=== PATIENT | female | born 1985 | race Caucasian/White ===

== ENCOUNTER 2021-06-03 09:12 | Emergency (ER) | payer OTHER ==
--- OUTSIDE RECORDS SUMMARY | 2021-06-03 09:23 | XMS REPORT | Continuity of Care Document ---
:1985 Author Organization [facility] t Address [address] [place] [address] [address]. [address] [place] [address] Care Team Providers Name Role Phone Ricardo Waterman MD Primary Care Physician Ana Paula ANAYA Attending Clinician Unavailable Ricardo Waterman MD Attending Clinician RICARDO WATERMAN Attending Clinician Unavailable [id number] Attending Clinician Unavailable Ana Paula Anaya MD Attending Clinician INJ Attending Clinician Unavailable [id number] Attending Clinician Unavailable Daniella GORMAN Attending Clinician Unavailable Provider, Urgent Care Attending Clinician Unavailable Ana Paula Mitchell Attending Clinician Payers Payer Name Policy Type Policy Number Effective Date Expiration Date S [facility] 2 [id number] 2020 00:00:00 Problems Condition Condition Condition Status Onset Resolution Last Treating Co mments Source Name Details Category Date Date Treatment Clinician Date Obesity Obesity Disease Active 0 Serina 7-06 Seybold 00:00: 00 Rheumatoid Rheumatoid Disease Active 0 K elsey arthritis arthritis 7-06 Seyb old 00:00: 00 No known No known Disease Unive rs active active ity of problems problems [place] [facility] Allergies, Adverse Reactions, Alerts Allergy Allergy Status Severity Reaction(s) Onset Inactive Treating Comm ents Source Name Type Date Date Clinician Penicill Propensi Active Other - See 2020-0 U nivers in ty to comments 7-14 ity of adverse 00:00: [place] reaction 00 Medical s to Branch drug PENICILL DRUG Active Low Other-Cmnt Univ ers IN INGREDI 11-10 ity of 00:00: [address] Penicill Propensi Active Other Serina ins ty to 11-02 Seybold adverse 00:00: reaction 00 s NO KNOWN Drug Active Univers ALLERGIE Class ity of S [facility] [place] [facility] Social History Social Habit Start Date Stop Date Quantity Comments Source History SDOH Serina Irizarryo ld Alcohol Frequency History SDOH Serina Segodwino ld Alcohol Std Drinks History SDOH Serina Perkinsybo ld Alcohol Binge Exposure to Not sure Serina Seybol d SARS-CoV-2 (event) History of Cigarette Smoker Universi ty of tobacco use [facility] [place] [facility] Alcohol intake 2021-05-30 2021-05-30 Current drinker of Eric donahue Seybpatricia 00:00:00 00:00:00 alcohol (finding) Alcohol Comment 2020-12-23 2020-12-23 occasionally Serina Perkinsybpatricia 00:00:00 00:00:00 Cigarettes smoked 2020-09-28 2020-09-28 Serina Sutherland current (pack per 00:00:00 00:00:00 day) - Reported Cigarette 2020-09-28 2020-09-28 Serina Perkinsybpatricia pack-years 00:00:00 00:00:00 Tobacco use and 2020-09-28 2020-09-28 Smokeless tobacco Ke godfrey Perkinsybold exposure 00:00:00 00:00:00 non-user Sex [birth year] F Serina Perkins ybpatricia 00:00:00 00:00:00 Smoking Status Start Date Stop Date Source Current every day smoker 2020-11-10 00:00:00 Uni versity [facility] Heavy tobacco smoker 2020-09-28 00:00:00 Serina Perkinsybpatricia Medications Ordered Filled Start Stop Current Ordering Indication Dosage Frequency Signature Comments Components Source Medication Medication Date Date Medication? Clinician (SIG) Name Name Cetirizine 2021- No Take by Miah y HCl (ZYRTEC 05-30 mouth Seybol d OR) 14:17: 00:00 51 :00 methylPREDN Yes [id number] 1{beatris} Take 1 beatris Serina ISolone 05-30 by mouth Seybold (Medrol) 4 00:00: See Admin MG oral 00 Instructio Tablet ns Use as Therapy directed. Pack Pseudoeph-B Yes [id number] 10mL Q.25D Take 10 mL Serina romphen-DM 1-31 by mouth 4 Sey bold (Bromfed 00:00: times DM) 30-2-10 00 daily as MG/5ML oral needed Syrup Ciprofloxac Yes [id number] 500mg Take 1 Serina in HCl 500 1-31 tablet Seybold MG oral 00:00: (500 mg Tablet 00 total) by mouth 2 times daily Lansoprazol 2020-04 Yes Take by Miah hernandez e (PREVACID 2-21 mouth Seybold OR) 15:04: 13 Cetirizine 2020-04 Yes Take by Jihan ey HCl (ZYRTEC 2-21 mouth Seybold OR) 15:04: 13 Lansoprazol 2020-04 Yes Take by Miah hernandez e (PREVACID 2-21 mouth Seybold OR) 15:04: 13 Methotrexat 2020-04 Yes [id number] 20mg Take 8 Serina e 2.5 MG 2-21 tablets Seybold oral Tablet 00:00: (20 mg 00 total) by mouth once a week Methotrexat 2020-04 Yes [id number] 20mg Take 8 Serina e 2.5 MG 2-21 tablets Seybold oral Tablet 00:00: (20 mg 00 total) by mouth once a week Azithromyci 2020-04- Yes [id number] Take 2 Serina n 250 MG 2-13 12-19 tablets by Seyb old oral Tablet 00:00: 05:59 mouth on 00 :00 day 1 then 1 tablet by mouth daily for 4 days thereafter . Methotrexat 2020-04 Yes [id number] 10mg Take 4 Serina e 2.5 MG 1-16 tablets Seybold oral Tablet 00:00: (10 mg 00 total) by mouth once a week Methotrexat 2020-04 Yes [id number] 10mg Take 4 Serina e 2.5 MG 1-16 tablets Seybold oral Tablet 00:00: (10 mg 00 total) by mouth once a week Methotrexat 2020-04- No [id number] 10mg Take 4 Serina e 2.5 MG 1-16 12-21 tablets Seybold oral Tablet 00:00: 00:00 (10 mg 00 :00 total) by mouth once a week methylPREDN 2020-04 Yes 1{beatris} Take 1 beatris Serina ISolone 0-23 by mouth Seybold (Medrol) 4 00:00: See Admin MG oral 00 Instructio Tablet ns Use as Therapy directed. Pack methylPREDN 2020-04 Yes 1{beatris} Take 1 beatris Serina ISolone 0-23 by mouth Seybold (Medrol) 4 00:00: See Admin MG oral 00 Instructio Tablet ns Use as Therapy directed. Pack methylPREDN 2020-04 Yes 1{beatris} Take 1 beatris Serina ISolone 0-23 by mouth Seybold (Medrol) 4 00:00: See Admin MG oral 00 Instructio Tablet ns Use as Therapy directed. Pack methylPREDN 2020-04- No 1{beatris} Take 1 beatris Serina ISolone 0-23 01-31 by mouth Seybold (Medrol) 4 00:00: 00:00 See Admin MG oral 00 :00 Instructio Tablet ns Use as Therapy directed. Pack Lansoprazol 2020-04 Yes Take by Miah sey e (PREVACID 0-19 mouth Seybold OR) 16:13: 29 Cetirizine 2020-04 Yes Take by Jihan ey HCl (ZYRTEC 0-19 mouth Seybold OR) 16:13: 29 Lansoprazol 2020-04 Yes Take by Miah sey e (PREVACID 0-19 mouth Seybold OR) 16:13: 29 Cetirizine 2020-04 Yes Take by Jihan ey HCl (ZYRTEC 0-19 mouth Seybold OR) 16:13: 29 Medroxyprog 2020-04- No [id number] 150mg Serina esterone 0-05 09-30 Seybold (DEPO-PROVE 05:00: 04:59 RA) [150 00 :00 mg/mL] - Once Every 3 Months Medroxyprog 2020-04- No [id number] 150mg Serina esterone 0-05 09-30 Seybold (DEPO-PROVE 05:00: 04:59 RA) [150 00 :00 mg/mL] - Once Every 3 Months Medroxyprog 2020-04- No [id number] 150mg Serina esterone 0-05 09-30 Seybold (DEPO-PROVE 05:00: 04:59 RA) [150 00 :00 mg/mL] - Once Every 3 Months Medroxyprog 2020-04- No [id number] 150mg Serina esterone 0-05 09-30 Seybold (DEPO-PROVE 05:00: 04:59 RA) [150 00 :00 mg/mL] - Once Every 3 Months Medroxyprog 2020-04- No [id number] 150mg Serina esterone 0-05 09-30 Seybold (DEPO-PROVE 05:00: 04:59 RA) [150 00 :00 mg/mL] - Once Every 3 Months Medroxyprog 2020-04- No [id number] 150mg Serina esterone 0-05 09-30 Seybold (DEPO-PROVE 05:00: 04:59 RA) [150 00 :00 mg/mL] - Once Every 3 Months Lansoprazol Yes Take by Miah sey e (PREVACID 8-26 mouth Seybold OR) 15:39: 54 Cetirizine Yes Take by Jihan ey HCl (ZYRTEC 8-26 mouth Seybold OR) 15:39: 54 Lansoprazol Yes Take by Miah sey e (PREVACID 8-26 mouth Seybold OR) 15:39: 54 Cetirizine Yes Take by Jihan ey HCl (ZYRTEC 8-26 mouth Seybold OR) 15:39: 54 Medroxyprog 2021- No [id number] 150mg Serina esterone 7-20 07-15 Seybold Acetate 05:00: 04:59 (DEPO-PROVE 00 :00 RA) 150 mg/mL - Once Every 3 Months Medroxyprog 2021- No [id number] 150mg Serina esterone 7-20 07-15 Seybold Acetate 05:00: 04:59 (DEPO-PROVE 00 :00 RA) 150 mg/mL - Once Every 3 Months Medroxyprog 2021- No [id number] 150mg Serina esterone 7-20 07-15 Seybold Acetate 05:00: 04:59 (DEPO-PROVE 00 :00 RA) 150 mg/mL - Once Every 3 Months Medroxyprog 2021- No [id number] 150mg Serina esterone 7-20 07-15 Seybold Acetate 05:00: 04:59 (DEPO-PROVE 00 :00 RA) 150 mg/mL - Once Every 3 Months Medroxyprog 2021- No [id number] 150mg Serina esterone 7-20 07-15 Seybold Acetate 05:00: 04:59 (DEPO-PROVE 00 :00 RA) 150 mg/mL - Once Every 3 Months Medroxyprog 2021- No [id number] 150mg Serina esterone 7-20 07-15 Seybold Acetate 05:00: 04:59 (DEPO-PROVE 00 :00 RA) 150 mg/mL - Once Every 3 Months Lisinopril Yes [id number] 5mg Take 1 K elsey 5 MG oral 7-20 tablet (5 Seybo ld Tablet 00:00: mg total) 00 by mouth daily Amitriptyli Yes [id number] 150mg Take 1 Serina ne HCl 150 7-20 tablet Seybold MG oral 00:00: (150 mg Tablet 00 total) by mouth nightly Levothyroxi Yes [id number] 75ug Take 1 Serina ne Sodium 7-20 tablet (75 Seyb old 75 MCG oral 00:00: mcg total) Tablet 00 by mouth daily Lisinopril Yes [id number] 5mg Take 1 K elsey 5 MG oral 7-20 tablet (5 Seybo ld Tablet 00:00: mg total) 00 by mouth daily Amitriptyli Yes [id number] 150mg Take 1 Serina ne HCl 150 7-20 tablet Seybold MG oral 00:00: (150 mg Tablet 00 total) by mouth nightly Levothyroxi Yes [id number] 75ug Take 1 Serina ne Sodium 7-20 tablet (75 Seyb old 75 MCG oral 00:00: mcg total) Tablet 00 by mouth daily Lisinopril 2021-0 Yes [id number] 5mg Take 1 K elsey 5 MG oral 7-20 tablet (5 Seybo ld Tablet 00:00: mg total) 00 by mouth daily Amitriptyli Yes [id number] 150mg Take 1 Serina ne HCl 150 7-20 tablet Seybold MG oral 00:00: (150 mg Tablet 00 total) by mouth nightly Levothyroxi Yes [id number] 75ug Take 1 Serina ne Sodium 7-20 tablet (75 Seyb old 75 MCG oral 00:00: mcg total) Tablet 00 by mouth daily Lisinopril Yes [id number] 5mg Take 1 K elsey 5 MG oral 7-20 tablet (5 Seybo ld Tablet 00:00: mg total) 00 by mouth daily Amitriptyli Yes [id number] 150mg Take 1 Serina ne HCl 150 7-20 tablet Seybold MG oral 00:00: (150 mg Tablet 00 total) by mouth nightly Levothyroxi Yes [id number] 75ug Take 1 Serina ne Sodium 7-20 tablet (75 Seyb old 75 MCG oral 00:00: mcg total) Tablet 00 by mouth daily Lisinopril Yes [id number] 5mg Take 1 K elsey 5 MG oral 7-20 tablet (5 Seybo ld Tablet 00:00: mg total) 00 by mouth daily Amitriptyli Yes [id number] 150mg Take 1 Serina ne HCl 150 7-20 tablet Seybold MG oral 00:00: (150 mg Tablet 00 total) by mouth nightly Levothyroxi Yes [id number] 75ug Take 1 Serina ne Sodium 7-20 tablet (75 Seyb old 75 MCG oral 00:00: mcg total) Tablet 00 by mouth daily Lisinopril Yes [id number] 5mg Take 1 K elsey 5 MG oral 7-20 tablet (5 Seybo ld Tablet 00:00: mg total) 00 by mouth daily Amitriptyli Yes [id number] 150mg Take 1 Serina ne HCl 150 7-20 tablet Seybold MG oral 00:00: (150 mg Tablet 00 total) by mouth nightly Levothyroxi Yes [id number] 75ug Take 1 Serina ne Sodium 7-20 tablet (75 Seyb old 75 MCG oral 00:00: mcg total) Tablet 00 by mouth daily Eletriptan Yes [id number] 40mg Take 1 Serina Hydrobromid 6-03 tablet (40 Se ybold e (Relpax) 00:00: mg total) 40 MG oral 00 by mouth Tablet as needed for migraine may repeat in 2 hours if necessary Eletriptan Yes [id number] 40mg Take 1 Serina Hydrobromid 6-03 tablet (40 Se ybold e (Relpax) 00:00: mg total) 40 MG oral 00 by mouth Tablet as needed for migraine may repeat in 2 hours if necessary Eletriptan Yes [id number] 40mg Take 1 Serina Hydrobromid 6-03 tablet (40 Se ybold e (Relpax) 00:00: mg total) 40 MG oral 00 by mouth Tablet as needed for migraine may repeat in 2 hours if necessary Eletriptan Yes [id number] 40mg Take 1 Serina Hydrobromid 6-03 tablet (40 Se ybold e (Relpax) 00:00: mg total) 40 MG oral 00 by mouth Tablet as needed for migraine may repeat in 2 hours if necessary Eletriptan Yes [id number] 40mg Take 1 Serina Hydrobromid 6-03 tablet (40 Se ybold e (Relpax) 00:00: mg total) 40 MG oral 00 by mouth Tablet as needed for migraine may repeat in 2 hours if necessary Eletriptan Yes [id number] 40mg Take 1 Serina Hydrobromid 6-03 tablet (40 Se ybold e (Relpax) 00:00: mg total) 40 MG oral 00 by mouth Tablet as needed for migraine may repeat in 2 hours if necessary Dextrometho Yes [id number] 1-2 Ke bobbyey rphan-guaiF 6-01 tablets Seybo ld ENesin 00:00: twice (Mucinex 00 daily with DM) 30-600 a full MG oral glass of Tablet 12 water as Hour needed for Sustained cough and Release congestion Ondansetron Yes [id number] 8mg Q8H Take 1 Serina (ZOFRAN) 8 6-01 tablet (8 Seyb old MG oral 00:00: mg total) tablet 00 by mouth every 8 hours as needed for nausea Loperamide 2020-0 Yes [id number] Take as Serina HCl 6-01 per Seybold (Imodium 00:00: package A-D) 2 MG 00 instructio oral Tablet n For diarrhea Ondansetron 2020-0 Yes [id number] 8mg Q8H Take 1 Serina (ZOFRAN) 8 6-01 tablet (8 Seyb old MG oral 00:00: mg total) tablet 00 by mouth every 8 hours as needed for nausea Loperamide 2020-0 Yes [id number] Take as Serina HCl 6-01 per Seybold (Imodium 00:00: package A-D) 2 MG 00 instructio oral Tablet n For diarrhea Azithromyci 2020-0 Yes [id number] 2 tablets Serina n 250 MG 6-01 at once on Seybo ld oral Tablet 00:00: day 1, 00 then 1 tablet daily from day 2 to day 5 Dextrometho 2020-0 Yes [id number] 1-2 Ke lsey rphan-guaiF 6-01 tablets Seybo ld ENesin 00:00: twice (Mucinex 00 daily with DM) 30-600 a full MG oral glass of Tablet 12 water as Hour needed for Sustained cough and Release congestion Ondansetron 2020-0 Yes [id number] 8mg Q8H Take 1 Serina (ZOFRAN) 8 6-01 tablet (8 Seyb old MG oral 00:00: mg total) tablet 00 by mouth every 8 hours as needed for nausea Loperamide 2020-0 Yes [id number] Take as Serina HCl 6-01 per Seybold (Imodium 00:00: package A-D) 2 MG 00 instructio oral Tablet n For diarrhea Azithromyci 2020-0 Yes [id number] 2 tablets Serina n 250 MG 6-01 at once on Seybo ld oral Tablet 00:00: day 1, 00 then 1 tablet daily from day 2 to day 5 Dextrometho 2021-0 Yes [id number] 1-2 Ke lsey rphan-guaiF 6-01 tablets Seybo ld ENesin 00:00: twice (Mucinex 00 daily with DM) 30-600 a full MG oral glass of Tablet 12 water as Hour needed for Sustained cough and Release congestion Ondansetron 2020-0 Yes [id number] 8mg Q8H Take 1 Serina (ZOFRAN) 8 6-01 tablet (8 Seyb old MG oral 00:00: mg total) tablet 00 by mouth every 8 hours as needed for nausea Loperamide 2020-0 Yes [id number] Take as Serina HCl 6-01 per Seybold (Imodium 00:00: package A-D) 2 MG 00 instructio oral Tablet n For diarrhea Azithromyci 2020-0 Yes [id number] 2 tablets Serina n 250 MG 6-01 at once on Seybo ld oral Tablet 00:00: day 1, 00 then 1 tablet daily from day 2 to day 5 Dextrometho 2020-0 Yes [id number] 1-2 Ke lsey rphan-guaiF 6-01 tablets Seybo ld ENesin 00:00: twice (Mucinex 00 daily with DM) 30-600 a full MG oral glass of Tablet 12 water as Hour needed for Sustained cough and Release congestion Ondansetron 2020-0 Yes [id number] 8mg Q8H Take 1 Serina (ZOFRAN) 8 6-01 tablet (8 Seyb old MG oral 00:00: mg total) tablet 00 by mouth every 8 hours as needed for nausea Loperamide 2020-0 Yes [id number] Take as Serina HCl 6-01 per Seybold (Imodium 00:00: package A-D) 2 MG 00 instructio oral Tablet n For diarrhea Dextrometho 2020-0 Yes [id number] 1-2 Ke lsey rphan-guaiF 6-01 tablets Seybo ld ENesin 00:00: twice (Mucinex 00 daily with DM) 30-600 a full MG oral glass of Tablet 12 water as Hour needed for Sustained cough and Release congestion Ondansetron 2020-0 Yes [id number] 8mg Q8H Take 1 Serina (ZOFRAN) 8 6-01 tablet (8 Seyb old MG oral 00:00: mg total) tablet 00 by mouth every 8 hours as needed for nausea Loperamide 2020-0 Yes [id number] Take as Serina HCl 6-01 per Seybold (Imodium 00:00: package A-D) 2 MG 00 instructio oral Tablet n For diarrhea Dextrometho 2021- No [id number] 1-2 K chase bush-sonidoF 09-28 tablets Seyb old ENesin 00:00: 00:00 twice (Mucinex 00 :00 daily with DM) 30-600 a full MG oral glass of Tablet 12 water as Hour needed for Sustained cough and Release congestion Azithromyci 2020- No [id number] 2 tablets Serina n 250 MG 09-28 at once on Seyb old oral Tablet 00:00: 00:00 day 1, 00 :00 then 1 tablet daily from day 2 to day 5 ibuprofen 2020- No 600mg Take 1 Univ ers (MOTRIN) 01-11 tablet by ity o f 600 mg 00:00: 00:00 mouth [place] tablet 00 :00 every 6 Medical (six) Branch hours as needed for Pain (scale 4-6). cetirizine Yes 10mg Take 10 mg U nivers (ZYRTEC) 10 9-12 by mouth ity of mg tablet 19:18: daily. [place] [address] Medical Branch AMITRIPTYLI Yes Take by Un kimi NE HCL 9-12 mouth. ity of (AMITRIPTYL 19:18: [place] INE ORAL) Medical Branch LEVOTHYROXI Yes Take by Un kimi NE SODIUM 9-12 mouth. ity of (SYNTHROID 19:18: [place] ORAL) 26 Medical Branch LOSARTAN Yes Take by Unive rs POTASSIUM 9-12 mouth. ity of (LOSARTAN 19:18: [place] ORAL) 26 Medical Branch propranolol Yes 60mg Take 60 mg Univers (INDERAL) 9-12 by mouth ity of 60 mg 19:18: daily. [place] tablet 26 Medical Branch eletriptan Yes 40mg Take 40 mg U nivers (RELPAX) 40 9-12 by mouth ity of mg tablet 19:18: [place]. [place] 26 May repeat Medical in 2 hours Branch if necessary amitriptyli Yes 100mg Take 100 U nivers ne (ELAVIL) 9-12 mg by ity of 100 mg 19:18: mouth at [place] tablet 25 bedtime. Medical Branch acetaminoph Yes 1{tbl} Take 1 Un kimi en-codeine 9-12 tablet by ity of (TYLENOL 19:18: mouth as [place] #3) 300-30 25 needed. Medica l mg tablet Branch Dexlansopra Yes 60mg Take 60 mg Univers zole 9-12 by mouth ity of (DEXILANT) 19:18: daily. [place] 60 mg 25 Medical capsule Branch levothyroxi Yes 50ug Take 50 Uni vers ne 9-12 mcg by ity of (SYNTHROID) 19:18: mouth [place] 50 mcg 25 every Medical tablet morning. Branch losartan Yes 50mg Take 50 mg Uni vers (COZAAR) 50 9-12 by mouth ity of mg tablet 19:18: daily. [place] 25 Medical Branch albuterol Yes 2{puff} Inhale 2 U nivers (PROAIR 9-12 Puffs ity of HFA) 90 19:18: every 6 [place] mcg/actuati 25 (six) Medical on inhaler hours as Branc h needed for Wheezing or Shortness of Breath. sulfamethox Yes 1{tbl} Take 1 Un kimi azole-trime 9-05 tablet by ity of thoprim 00:00: mouth [place] (BACTRIM 00 every 12 Medical DS) 800-160 (twelve) Bran ch mg per hours. tablet dicyclomine Yes 20mg Take 1 Univ ers (BENTYL) 20 9-05 tablet by ity of mg tablet 00:00: [place] 00 needed for Medical Abdominal Branch pain (TO MAX OF QID). famotidine Yes 20mg Take 1 Unive rs (PEPCID) 20 9-05 tablet by ity of mg tablet 00:00: [place] 00 bedtime. [place] proMETHazin Yes 25mg Take 1 Univ ers e 9-05 tablet by ity of (PHENERGAN) 00:00: mouth [place] 25 mg 00 every 6 Medical tablet (six) Branch hours as needed for Nausea and Vomiting (N/V) (TO MAX OF QID). Immunizations Ordered Immunization Filled Immunization Date Status Commen ts Source Name Name Meningococcal 2011-03-20 Completed Serina gomez Vaccine- 00:00:00 Conjugate(Menactra) Meningococcal 2011-03-20 Completed Serina Irizarry old Vaccine- 00:00:00 Conjugate(Menactra) Meningococcal 2011-03-20 Completed Serina Perkinsyb old Vaccine- 00:00:00 Conjugate(Menactra) Meningococcal 2011-03-20 Completed Serina yb old Vaccine- 00:00:00 Conjugate(Menactra) Meningococcal 2011-03-20 Completed Serina godwin old Vaccine- 00:00:00 Conjugate(Menactra) Meningococcal 2011-03-20 Completed Serina Irizarry old Vaccine- 00:00:00 Conjugate(Menactra) Td (adult), 2 2002-02-18 Completed Serina Monreal eybold tetanus toxoid, 00:00:00 preservative free, adsorbed Td (adult), 2 2002-02-18 Completed Serina barajasbold tetanus toxoid, 00:00:00 preservative free, adsorbed Td (adult), 2 2002-02-18 Completed Serina barajasbold tetanus toxoid, 00:00:00 preservative free, adsorbed Td (adult), 2 2002-02-18 Completed Serina Monreal eybold tetanus toxoid, 00:00:00 preservative free, adsorbed Td (adult), 2 2002-02-18 Completed Serina barajasbold tetanus toxoid, 00:00:00 preservative free, adsorbed Td (adult), 2 2002-02-18 Completed Serina S karlbold tetanus toxoid, 00:00:00 preservative free, adsorbed Vital Signs Vital Name Observation Time Observation Value Comments Source Systolic blood 2021-04-19 21:01:00 156 mm[Hg] Serina Irizarryold pressure Diastolic blood 2021-04-19 21:01:00 96 mm[Hg] Sugar díaz Seybold pressure Heart rate 2021-04-19 21:01:00 109 /min Serina curtis Respiratory rate 2021-04-19 21:01:00 16 /min Jihan Sutherland Body height 2021-04-19 21:01:00 167.6 cm Serina curtis Body weight 2021-04-19 21:01:00 115.667 kg Serina curtis BMI 2021-04-19 21:01:00 41.16 kg/m2 Serina S eybold Systolic blood 2021-02-15 20:36:00 134 mm[Hg] Serina Seybold pressure Diastolic blood 2021-02-15 20:36:00 88 mm[Hg] Kelse y Seybold pressure Heart rate 2021-02-15 20:36:00 88 /min Serina S eybold Body temperature 2021-02-15 20:36:00 36.39 Sonja Jihan ey Seybold Respiratory rate 2021-02-15 20:36:00 16 /min Jihan ey Seybold Body height 2021-02-15 20:36:00 167.6 cm Serina S eybold Body weight 2021-02-15 20:36:00 117.935 kg Serina S eybold BMI 2021-02-15 20:36:00 41.97 kg/m2 Serina S eybold Systolic blood 2020-11-10 13:55:00 124 mm[Hg] Univer sity of pressure [facility] [place] [facility] Diastolic blood 2020-11-10 13:55:00 85 mm[Hg] Unive rsity of pressure [facility] [place] [facility] Heart rate 2020-11-10 13:55:00 92 /min Universi ty of [facility] [place] [facility] Body temperature 2020-11-10 13:55:00 36.94 Sonja Univ ersity of [facility] [place] [facility] Branch Respiratory rate 2020-11-10 13:55:00 18 /min Univ ersity of [facility] [place] [facility] Body height 2020-11-10 13:55:00 167.6 cm Universi ty of [place] [facility] Body weight 2020-11-10 13:55:00 113.399 kg Universi ty of [place] [facility] BMI 2020-11-10 13:55:00 40.35 kg/m2 Universi ty of [facility] [place] [facility] Oxygen saturation in 2020-11-10 13:55:00 100 /min [facility] blood by [facility] Pulse oximetry Branch Procedures This patient has no known procedures. Encounters Start End Encounter Admission Attending Care Care Encounter Source Date/Time Date/Time Type Type Clinicians Facility Department ID 2021-06-21 2021-06-21 Outpatient SERINA ANAYA [id number] Serina 14:30:00 14:30:00 LISS Hickey ld 2021-05-302021-05-30 Telemedici Sumit Waterman [id number] Serina 14:00:00 14:18:57 ne Kim Uribe [id number] Se ybold Somogyi [id number] 2021-05-24 2021-05-24 Outpatient SERINA WATERMAN [id number] Serina 11:15:00 11:15:00 KIM Seybol d 2021-04-19 2021-04-19 Outpatient LAB SERINA FERNANDES [id number] Serina 15:30:00 15:30:00 Seybol d 2021-04-19 2021-04-19 Office DARYL Anaya [id number] Serina 15:00:00 15:15:00 Visit Liss Goss [id number] Seybold [id number] 2021-04-11 2021-04-11 Telemedici Sumit WATERMAN [id number] Serina 13:30:00 13:30:00 ne KIM Uribe [id number] Se ybold [id number] 2021-03-15 2021-03-15 Telemedici DARYL Anaya [id number] Serina 15:02:33 15:11:41 ne Liss Ana Paula [id number] Seybold [id number] 2021-02-19 2021-02-19 Outpatient SERINA ANAYA [id number] Serina 00:00:00 00:00:00 LISS Irizarryo pat 2021-02-18 2021-02-18 Outpatient SERINA ANAYA [id number] Serina 00:00:00 00:00:00 LISS Irizarryo pat 2021-02-15 2021-02-15 Office DARYL Anaya [id number] Serina 15:28:17 15:58:17 Visit Liss Goss [id number] Seybold [id number] 2021-02-15 2021-02-15 Outpatient LAB47 SERINA FERNANDES [id number] Serina 15:50:00 15:50:00 Seybol d 2021-02-09 2021-02-09 Telemedici Sumit Waterman [id number] Serina 14:29:06 14:47:11 ne Kim Uribe [id number] Se ybold Somogyi [id number] 2021-02-08 2021-02-08 Outpatient INJSERINA [id number] Serina 15:00:00 15:00:00 DARYL Irizarryo pat 2021-01-11 2021-01-11 Outpatient SERINA ANAYA [id number] Serina 15:15:00 15:15:00 LISS Perkinsybo pat 2020-12-23 2020-12-23 Outpatient [id number] SERINA FERNANDES [id number] Serina 17:00:00 17:00:00 Seybol d 2020-12-23 2020-12-23 Outpatient GORMANSERINA HEAD [id number] Serina 15:30:00 15:30:00 GIANLUCA Seybol d 2020-11-16 2020-11-16 Outpatient INJSERINA [id number] Serina 16:30:00 16:30:00 DARYL Irizarryo pat 2020-11-10 2020-11-10 Outpatient R [facility] [id number] Univers 10:00:00 10:00:00 ity of [facility] [place] [facility] 2020-11-10 2020-11-10 Urgent Provider, [facility] [id number] Univers 08:14:07 09:20:05 Care Triny Lovett [id number] ity [facility] [id number] [place] as Professio [id number] [address] Office [address] 2020-11-10 2020-11-10 Outpatient SERINA WATERMAN [id number] Serina 00:00:00 00:00:00 KIM baumann 2020-11-04 2020-11-04 Outpatient SERINA WATERMAN [id number] Serina 00:00:00 00:00:00 KIM baumann Results This patient has no known results.
[2021-06-03 09:43] LABS: Urine Blood Negative (Negative); Urine Glucose Negative (Negative); Urine Protein Negative (Negative); Urine Specific Gravity 1.015 (1.005-1.030)
[2021-06-03] MEDS ORDERED: FAMOTIDINE 20 MG/2 ML VIAL IV ONE (09:44)
[2021-06-03] MEDS ORDERED: NA CHLORIDE 0.9% 1,000 ML ONE (09:44)
[2021-06-03] MEDS ORDERED: ONDANSETRON 4 MG/2 ML VIAL ONE (09:44)
[2021-06-03 09:52] LABS: Absolute Lymphocytes (CBC) 1.5 K/uL (0.7-4.9); Lymphocytes % 13.4 % (15.3-44.8); RBC Red Blood Cell Count 4.74 M/uL (3.86-4.86)
[2021-06-03 10:18] LABS: Urine Specific Gravity/Preg 1.015 (1.005-1.030)
--- NOTE | 2021-06-03 11:21 | RAD REPORT ---
EXAM DESCRIPTION: US - Abdomen Exam Limited - 06/03/2021 10:47 am CLINICAL HISTORY: ABD PAIN COMPARISON: Abdomen Exam Complete dated 03/23/2020 FINDINGS: The gallbladder demonstrates no gallstones. No pericholecystic fluid or gallbladder wall t hickening. The common bile duct is normal measuring 5 mm. The liver demonstrates no findings of intrahepatic biliary dilatation. IMPRESSION: Negative for cholelithiasis, acute cholecystitis, or biliary ductal dilatation.
[2021-06-03] MEDS ORDERED: LORazepam 2 MG/ML VIAL ONE ×2 (11:24→13:22)
[2021-06-03 11:35] LABS: ALT/SGPT 91 U/L (12-78); AST/SGOT 28 U/L (15-37); Albumin 3.4 g/dL (3.4-5.0); Alkaline Phosphatase 76 U/L (45-117); BUN Blood Urea Nitrogen 19 mg/dL (7-18); Bicarbonate 19 mmol/L (21-32); Bilirubin Direct < 0.1 mg/dL (0-0.2); Bilirubin Total 0.3 mg/dL (0.2-1.0); Glucose Level 108 mg/dL (74-106); Lipase 134 U/L (73-393); Potassium 4.2 mmol/L (3.5-5.1); Protein, Total 6.7 g/dL (6.4-8.2); Sodium Level 140 mmol/L (136-145)
[2021-06-03] MEDS ORDERED: MORPHINE 4 MG/ML SYR ONE (13:23)
--- NOTE | 2021-06-03 14:23 | RAD REPORT ---
EXAM DESCRIPTION: CT - Abdomen Pelvis Wo Contrast - 06/03/2021 2:08 pm CLINICAL HISTORY: Abdominal pain. ABD PAIN COMPARISON: Stone Protocol dated 08/12/2015 TECHNIQUE: CT imaging of the abdomen and pelvis was performed without contrast. Solid organ, bowel a nd vascular assessment is limited due to lack of IV and oral contrast. All CT scans are performed using dose optimization technique as appropriate and may include automated exposure control or mA/KV adjustment according to patient size. FINDINGS: The lower lung urena are clear. The liver, spleen, pancreas, adrenal glands and left kidney are within normal limits for a limited no n-contrast examination. No bowel obstruction, free air, free fluid or abscess. Appendectomy. The osseous structures are within normal limits. IMPRESSION: Small calculus inferior right kidney without hydronephrosis. A limited non-contrast examination was performed as detailed.
--- NOTE | 2021-06-03 15:44 | RAD REPORT ---
EXAM DESCRIPTION: RAD - Chest Single View - 06/03/2021 3:33 pm CLINICAL HISTORY: Cough;Congestion Chest pain. COMPARISON: Chest Pa And Lat (2 Views) dated 06/25/2019; Chest Pa And Lat (2 Views) dated 05/18/2016; CHEST SINGLE VIEW dated 07/03/2014; CHEST PA AND LAT 2 VIEW dated 06/09/2014 FINDINGS: Portable technique limits examination quality. The lungs are grossly clear. The heart is normal in size. No displaced fractures. IMPRESSION: No acute intrathoracic process suspected.
--- NOTE | 2021-06-03 15:57 | ER ---
Nurse's Notes [facility] Name: Adina Watkins Age: 35 yrs Sex: Female : 1985 Arrival Date: 06/03/2021 Time: 09:14 Bed 13 Private MD: Diagnosis: Upper abdominal pain, unspecified;Cough Presentation: 06/03 09:23 Chief complaint: Patient states: Right sided abdominal pain, throbbing, radiates to jl7 right shoulder/arm since last night, reports nausea and frequent urination. Coronavirus screen: Vaccine status: Patient reports receiving the 2nd dose of the covid vaccine. Moderna. Ebola Screen: No symptoms or risks identified at this time. Initial Sepsis Screen: Does the patient meet any 2 criteria? No. Patient's initial sepsis screen is negative. Does the patient have a suspected source of infection? No. Patient's initial sepsis screen is negative. Risk Assessment: Do you want to hurt yourself or someone else? Patient reports no desire to harm self or others. Onset of symptoms was June 02, 2021. 09:23 Method Of Arrival: Ambulatory [facility] 09:23 Acuity: CARTER 3 jl7 Triage Assessment: 09:26 General: Appears in no apparent distress. uncomfortable, Behavior is calm, cooperative, jl7 appropriate for age. Pain: Complains of pain in anterior aspect of right lateral abdomen Pain currently is 8 out of 10 on a pain scale. GI: Reports nausea. APPLICATIONS INTERN: 09:26 LMP N/A - Depo-provera jl7 Historical: - Allergies: 09:26 PENICILLINS; jl7 - Home Meds: :26 levothyroxine oral [Active]; losartan oral [Active]; Prevacid Oral [Active]; jl7 Methotrexate (Anti-Rheumatic) Oral [Active]; Amitriptyline Oral [Active]; - PMHx: 09:26 Hypothyroidism; Migraines; Hypertensive disorder; Rheumatoid arthritis; GERD; jl7 - PSHx: 09:26 Appendectomy; Tonsillectomy; jl7 - Immunization history:: Adult Immunizations up to date, Client reports receiving the 2nd dose of the Covid vaccine. - Social history:: Smoking status: Patient reports the use of cigarette tobacco products, smokes one-half pack cigarettes per day. Screenin:30 Abuse screen: Denies threats or abuse. Denies injuries from another. Nutritional hooks screening: No deficits noted. Tuberculosis screening: No symptoms or risk factors identified. Fall Risk None identified. Assessment: 09:30 GI: Bowel sounds present X 4 quads. Abd is soft Abd is non tender Reports lower hooks abdominal pain. : Reports burning with urination. 10:13 Reassessment: Pt provided w tissue as requested. Mom at pt's bedside. ic1 10:42 Reassessment: Pt transported to [facility] via wheelchair. ic1 Vital Signs: 09:23 BP 137 / 100; Pulse 103; Resp 17; Temp 97; Pulse Ox 97% ; Weight 115.67 kg; Height 5 jl7 ft. 6 in. (167.64 cm); Pain 8/10; 09:23 Body Mass Index 41.16 (115.67 kg, 167.64 cm) jl7 ED Course: 09:14 Patient arrived in ED. as 09:26 Triage completed. jl7 09:26 Arm band placed on right wrist. jl7 09:30 Fall risk band placed. Bed in low position. hooks 09:30 No provider procedures requiring assistance completed. hooks 09:34 Jesse Woods MD is Attending Physician. kdr 09:43 Basic Metabolic Panel Sent. hooks 09:43 CBC with Diff Sent. hooks 09:43 Hepatic Function Sent. hooks 09:43 Lipase Sent. hooks 09:55 Inserted saline lock: 20 gauge in right hand, using aseptic technique. hooks 10:47 US Abdomen Limited In Process Unspecified. EDMS 14:08 Abdomen In Process Unspecified. EDMS 15:38 CXR XRAY In Process Unspecified. EDMS 16:23 IV discontinued, intact, Pressure dressing applied. hooks Administered Medications: 09:46 Drug: NS 0.9% 1000 ml Route: IV; Rate: 1 bolus; Site: right hand; ic1 09:47 Drug: Pepcid (famotidine) 20 mg Route: IVP; Site: right hand; ic1 09:47 Drug: Zofran (Ondansetron) 4 mg Route: IVP; Site: right hand; ic1 11:40 Drug: Ativan (LORazepam) 1 mg Route: IVP; Site: right hand; ic1 12:43 Follow up: Response: No adverse reaction hooks 13:23 Drug: Ativan (LORazepam) 1 mg Route: IVP; Site: right hand; 13:23 Follow up: Response: No adverse reaction hooks 13:23 Drug: morphine 5 mg Route: IVP; Site: right hand; 13:23 Follow up: Response: No adverse reaction hooks Outcome: 15:56 Discharge ordered by . rojelio 16:23 Discharged to home hooks 16:23 Condition: good 16:23 Discharge instructions given to patient, Prescriptions given X 1. 16:23 Patient left the ED. hooks Signatures: Dispatcher [employer] EDMS Jesse Woods MD MD kdr Martinez, Amelia as Leal, Jahala, RN RN jl7 Keyanna Berumen RN RN Halie Johnson RN RN ic1
--- NOTE | 2021-06-03 15:57 | EDPHYS ---
Physician Documentation [facility] Name: Adina Watkins Age: 35 yrs Sex: Female : 1985 Arrival Date: 06/03/2021 Time: 09:14 Bed 13 Private MD: ED Physician Jesse Woods HPI: 06/03 11:08 This 35 yrs old Female presents to ER via Ambulatory with complaints of Abdominal Pain. kdr 11:08 The patient presents to the emergency department with nausea, that is mild, vomiting, kdr that is intermittent, abdominal pain, of the posterior aspect of right lateral abdomen, anterior aspect of right lateral abdomen and right upper quadrant. Onset: The symptoms/episode began/occurred last night. Possible causes: unknown. The symptoms are aggravated by. Associated signs and symptoms: The patient has no apparent associated signs or symptoms. Severity of symptoms: At their worst the symptoms were mild moderate just prior to arrival, in the emergency department the symptoms are unchanged. The patient has experienced similar episodes in the past, a few times. The patient has not recently seen a physician. The patient began to have right-sided abdominal pain. The pain is right upper quadrant with radiation to into the right flank. Pain is intermittent and occasionally sharp in nature. She has had some slight nausea but no vomiting. No change in bowel habits.. REPRESENTATIVE GOVERNMENT RELATIONS: 09:26 LMP N/A - Depo-provera Historical: - Allergies: : PENICILLINS; jl - Home Meds: :26 levothyroxine oral [Active]; losartan oral [Active]; Prevacid Oral [Active]; jl7 Methotrexate (Anti-Rheumatic) Oral [Active]; Amitriptyline Oral [Active]; - PMHx: 09:26 Hypothyroidism; Migraines; Hypertensive disorder; Rheumatoid arthritis; GERD; jl7 - PSHx: :26 Appendectomy; Tonsillectomy; jl7 - Immunization history:: Adult Immunizations up to date, Client reports receiving the 2nd dose of the Covid vaccine. - Social history:: Smoking status: Patient reports the use of cigarette tobacco products, smokes one-half pack cigarettes per day. ROS: 11:08 Constitutional: Negative for fever, chills, and weight loss, Eyes: Negative for injury, kdr pain, redness, and discharge, ENT: Negative for injury, pain, and discharge, Neck: Negative for injury, pain, and swelling, Cardiovascular: Negative for chest pain, palpitations, and edema, Respiratory: Negative for shortness of breath, cough, wheezing, and pleuritic chest pain, Back: Negative for injury and pain, : Negative for injury, bleeding, discharge, and swelling, MS/Extremity: Negative for injury and deformity, Skin: Negative for injury, rash, and discoloration, Neuro: Negative for headache, weakness, numbness, tingling, and seizure activity. Psych: Negative for depression, anxiety, suicide ideation, homicidal ideation, and hallucinations, Allergy/Immunology: Negative for hives, rash, and allergies, Endocrine: Negative for neck swelling, polydipsia, polyuria, polyphagia, and marked weight changes, Hematologic/Lymphatic: Negative for swollen nodes, abnormal bleeding, and unusual bruising. 11:08 Abdomen/GI: Positive for abdominal pain, nausea, Negative for constipation, abdominal cramps, abdominal distension, anorexia, dysphagia, hematemesis, black/tarry stool, rectal pain, rectal bleeding. Exam: 11:08 Constitutional: This is a well developed, well nourished patient who is awake, alert, kdr and in no acute distress. Head/Face: Normocephalic, atraumatic. Eyes: Pupils equal round and reactive to light, extra-ocular motions intact. Lids and lashes normal. Conjunctiva and sclera are non-icteric and not injected. Cornea within normal limits. Periorbital areas with no swelling, redness, or edema. Neck: Trachea midline, no thyromegaly or masses palpated, and no cervical lymphadenopathy. Supple, full range of motion without nuchal rigidity, or vertebral point tenderness. No Meningismus. Chest/axilla: Normal chest wall appearance and motion. Nontender with no deformity. No lesions are appreciated. Cardiovascular: Regular rate and rhythm with a normal S1 and S2. No gallops, murmurs, or rubs. Normal PMI, no JVD. No pulse deficits. Respiratory: Lungs have equal breath sounds bilaterally, clear to auscultation and percussion. No rales, rhonchi or wheezes noted. No increased work of breathing, no retractions or nasal flaring. Back: No spinal tenderness. No costovertebral tenderness. Full range of motion. Skin: Warm, dry with normal turgor. Normal color with no rashes, no lesions, and no evidence of cellulitis. MS/ Extremity: Pulses equal, no cyanosis. Neurovascular intact. Full, normal range of motion. Neuro: Awake and alert, GCS 15, oriented to person, place, time, and situation. Cranial nerves II-XII grossly intact. Motor strength 5/5 in all extremities. Sensory grossly intact. Cerebellar exam normal. Normal gait. Psych: Awake, alert, with orientation to person, place and time. Behavior, mood, and affect are within normal limits. 11:08 Abdomen/GI: Inspection: obese Bowel sounds: active, all quadrants, Palpation: soft. Vital Signs: 09:23 BP 137 / 100; Pulse 103; Resp 17; Temp 97; Pulse Ox 97% ; Weight 115.67 kg; Height 5 jl7 ft. 6 in. (167.64 cm); Pain 8/10; 09:23 Body Mass Index 41.16 (115.67 kg, 167.64 cm) jl7 MDM: 11:08 Data reviewed: vital signs, nurses notes, lab test result(s), radiologic studies. kdr Counseling: I had a detailed discussion with the patient and/or guardian regarding: the historical points, exam findings, and any diagnostic results supporting the discharge/admit diagnosis, lab results, radiology results. 15:56 Patient medically screened. kdr 06/03 09:35 Order name: Basic Metabolic Panel; Complete Time: 14:59 kdr 06/03 09:35 Order name: CBC with Diff; Complete Time: 10:05 kdr 06/03 09:35 Order name: Hepatic Function; Complete Time: 14:59 kdr 06/03 09:35 Order name: Lipase; Complete Time: 14:59 kdr 06/03 09:43 Order name: Urine Dipstick-Ancillary; Complete Time: 10:05 EDMS 06/03 09:48 Order name: Urine --Ancillary (enter results) eb 06/03 09:49 Order name: Urine --Ancillary; Complete Time: 11:30 EDMS 06/03 10:05 Order name: US Abdomen Limited; Complete Time: 11:30 kdr 06/03 14:06 Order name: Abdomen ; Complete Time: 14:59 EDMS 06/03 15:08 Order name: CXR XRAY; Complete Time: 15:54 kdr 06/03 09:35 Order name: IV Saline Lock; Complete Time: :43 kdr 06/03 09:35 Order name: Labs collected and sent; Complete Time: : kdr 06/03 09:35 Order name: Urine Dipstick-Ancillary (obtain specimen); Complete Time: kdr 06/03 09:35 Order name: Urine Test (obtain specimen); Complete Time: :43 kdr Administered Medications: 09:46 Drug: NS 0.9% 1000 ml Route: IV; Rate: 1 bolus; Site: right hand; ic1 09:47 Drug: Pepcid (famotidine) 20 mg Route: IVP; Site: right hand; ic1 09:47 Drug: Zofran (Ondansetron) 4 mg Route: IVP; Site: right hand; ic1 11:40 Drug: Ativan (LORazepam) 1 mg Route: IVP; Site: right hand; ic1 12:43 Follow up: Response: No adverse reaction hooks 13:23 Drug: Ativan (LORazepam) 1 mg Route: IVP; Site: right hand; hooks 13:23 Follow up: Response: No adverse reaction hooks 13:23 Drug: morphine 5 mg Route: IVP; Site: right hand; hooks 13:23 Follow up: Response: No adverse reaction hooks Disposition Summary: 06/03/21 15:56 Discharge Ordered Location: Home kdr Problem: new kdr Symptoms: have improved kdr Condition: Stable kdr Diagnosis - Upper abdominal pain, unspecified kdr - Cough kdr Followup: kdr - With: Private Physician - When: 2 - 3 days - Reason: If symptoms return, Further diagnostic work-up, Recheck today's complaints, Continuance of care, Re-evaluation by your physician Discharge Instructions: - Discharge Summary Sheet kdr - Abdominal Pain, Adult, [id number] kdr - Cough, Adult kdr Forms: - Medication Reconciliation Form kdr - Thank You Letter kdr - Work release form hooks Prescriptions: - Tessalon Perles 100 mg Oral Capsule - take 1 capsule by ORAL route every 8 hours As needed; 15 capsule; Refills: 0, kdr Product Selection Permitted Signatures: Dispatcher [employer] Jesse Alrdidge MD MD kdr Leal, Jahala, RN RN jl7 Botello, Elizabeth eb Au-Stager, Heather, RN RN ha Creggett, Iesha RN RN ic1 Corrections: (The following items were deleted from the chart) 14:06 10:05 Abdomen Pelvis W [id number].[id number] ordered. EDMS EDMS
[2021-06-03 17:22] VITALS: BP 137/100; TEMP 97; O2SAT 97
== END 2021-06-03 16:23 | disposition home or self-care (01) ==
LOC: ER 09:12
DX: R10.10 Upper abdominal pain, unspecified (principal); R05.9 Cough, unspecified; I10 Essential (primary) hypertension; E03.9 Hypothyroidism, unspecified; F17.210 Nicotine dependence, cigarettes, uncomplicated; Z88.0 Allergy status to penicillin
CPT/HCPCS: 85025; 80048; 36415; 81025; 80076; 81003; 83690; 74176; 71045; 76705; 96375; 96374; 99284; J7030; J2405

== ENCOUNTER 2023-08-31 03:12 | Emergency (ER) | payer BC, OTHER ==
[2023-08-31] MEDS ORDERED: PROMETHAZINE INJ 25 MG/ML AMP ONE (03:55)
[2023-08-31] MEDS ORDERED: levoFLOXacin 750 MG TAB ONE (03:55)
[2023-08-31] MEDS ORDERED: CEFTRIAXONE 1000 MG/VIAL ONE (03:55)
[2023-08-31] MEDS ORDERED: HYDROMORPHONE HCL 2 MG/ML inj ONE (03:56)
--- NOTE | 2023-08-31 10:41 | EDPHYS ---
Physician Documentation [facility] Name: Adina Watkins Age: 37 yrs Sex: Female : 1985 Arrival Date: 08/31/2023 Time: 03:12 Bed 16 Private MD: ROB Physician Vinicius Jones HPI: 08/30 03:50 This 37 yrs old Female presents to ER via Ambulatory with complaints of Ear melanie problem. 03:50 The patient presents with drainage, pain, tenderness. The complaints affect the left melanie ear. Onset: The symptoms/episode began/occurred 2 day(s) ago. Modifying factors: The symptoms are alleviated by covering ear, the symptoms are aggravated by nothing. Associated signs and symptoms: The patient has no apparent associated signs or symptoms. Severity of symptoms: At their worst the symptoms were moderate in the emergency department the symptoms are unchanged. The patient has experienced similar episodes in the past, multiple times. Historical: - Allergies: 03:38 PENICILLINS; cm10 - PMHx: 03:38 GERD; Hypertensive disorder; Hypothyroidism; Migraines; Rheumatoid Arthritis; cm10 - PSHx: 03:38 Appendectomy; Tonsillectomy; cm10 - Immunization history:: Adult Immunizations up to date. - Infectious Disease History:: Denies. - Social history:: Smoking status: Patient reports the use of cigarette tobacco products, denies chronic smoking, but will smoke occasionally, Reported history of juuling and/or vaping. - Family history:: not pertinent. ROS: 03:58 Constitutional: Negative for fever, chills, and weight loss, Eyes: Negative for injury, melanie pain, redness, and discharge, Neck: Negative for injury, pain, and swelling, Cardiovascular: Negative for chest pain, palpitations, and edema, Respiratory: Negative for shortness of breath, cough, wheezing, and pleuritic chest pain, Abdomen/GI: Negative for abdominal pain, nausea, vomiting, diarrhea, and constipation, Back: Negative for injury and pain, : Negative for injury, bleeding, discharge, and swelling, MS/Extremity: Negative for injury and deformity, Skin: Negative for injury, rash, and discoloration, Neuro: Negative for headache, weakness, numbness, tingling, and seizure, Psych: Negative for depression, anxiety, suicide ideation, homicidal ideation, and hallucinations, Allergy/Immunology: Negative for hives, rash, and allergies, Endocrine: Negative for neck swelling, polydipsia, polyuria, polyphagia, and marked weight changes, Hematologic/Lymphatic: Negative for swollen nodes, abnormal bleeding, and unusual bruising, 03:58 ENT: Positive for drainage from ear(s), ear pain, Exam: 03:58 Constitutional: This is a well developed, well nourished patient who is awake, alert, melanie and in no acute distress. Head/Face: Normocephalic, atraumatic. Eyes: Pupils equal round and reactive to light, extra-ocular motions intact. Lids and lashes normal. Conjunctiva and sclera are non-icteric and not injected. Cornea within normal limits. Periorbital areas with no swelling, redness, or edema. Neck: Trachea midline, no thyromegaly or masses palpated, and no cervical lymphadenopathy. Supple, full range of motion without nuchal rigidity, or vertebral point tenderness. No Meningismus. Chest/axilla: Normal chest wall appearance and motion. Nontender with no deformity. No lesions are appreciated. Cardiovascular: Regular rate and rhythm with a normal S1 and S2. No gallops, murmurs, or rubs. Normal PMI, no JVD. No pulse deficits. Respiratory: Lungs have equal breath sounds bilaterally, clear to auscultation and percussion. No rales, rhonchi or wheezes noted. No increased work of breathing, no retractions or nasal flaring. Abdomen/GI: Soft, non-tender, with normal bowel sounds. No distension or tympany. No guarding or rebound. No evidence of tenderness throughout. Back: No spinal tenderness. No costovertebral tenderness. Full range of motion. Skin: Warm, dry with normal turgor. Normal color with no rashes, no lesions, and no evidence of cellulitis. MS/ Extremity: Pulses equal, no cyanosis. Neurovascular intact. Full, normal range of motion. Neuro: Awake and alert, GCS 15, oriented to person, place, time, and situation. Cranial nerves II-XII grossly intact. Motor strength 5/5 in all extremities. Sensory grossly intact. Cerebellar exam normal. Normal gait. Psych: Awake, alert, with orientation to person, place and time. Behavior, mood, and affect are within normal limits. 03:58 ENT: TM's: erythema, PE tubes visualized. PE tubes patent, intact, draining in ear canal Mouth: is normal, no acute changes, Posterior pharynx: is normal, no acute changes, Airway: normal, no evidence of obstruction, Vital Signs: 03:37 BP 128 / 96; Pulse 95; Resp 16; Temp 98.5; Pulse Ox 100% on R/A; Weight 120.2 kg; cm10 Height 5 ft. 6 in. ; Pain 7/10; 04:22 BP 112 / 62; Pulse 82; Resp 19; Temp 97.5(TE); Pulse Ox 100% on R/A; Pain 0/10; tm6 04:35 BP 113 / 70; Pulse 80; Pulse Ox 98% on R/A; Pain 0/10; tm6 03:37 Body Mass Index 42.77 (120.20 kg, 167.64 cm) cm10 03:37 Pain Scale: Adult cm10 04:22 Pain Scale: Adult tm6 04:35 Pain Scale: Adult tm6 MDM: 03:32 Patient medically screened. melanie 04:00 Differential diagnosis: otitis media, otitis externa, ruptured TM, acute otalgia, melanie cerumen impaction. Data reviewed: vital signs, nurses notes. Consideration of Admission/Observation Escalation of care including admission/observation considered. I considered the following discharge prescriptions or medication management in the emergency department Medications were administered in the Emergency Department. See MAR. Test considered but Not performed: Labs: no cbc, cmp. Historians other than the Patient: Family Member: pt and family well informed. Care significantly affected by the following chronic conditions: Hypertension, Obesity, hypothyroid, migrane, ra, gerd. Counseling: I had a detailed discussion with the patient and/or guardian regarding the historical points, exam findings, and any diagnostic results supporting the discharge/admit diagnosis. Administered Medications: 04:06 Drug: HYDROmorphone IM 2 mg IM once Route: IM; Site: right deltoid; tm6 04:06 Drug: Promethazine IM 25 mg IM once Route: IM; Site: left deltoid; tm6 04:06 Drug: LevOfloxacin PO 750 mg PO once Route: PO; tm6 04:07 Not Given (medication not availablee): ciprodexdrops 4 drops Otic once tm6 04:17 Drug: Rocephin (cefTRIAXone) IM 1 grams IM once Route: IM; Site: right ventrogluteal; tm6 Disposition Summary: 08/31/23 04:03 Discharge Ordered Notes: Location: Home [facility] Problem: new melanie Symptoms: have improved melanie Condition: Stable melanie Diagnosis - Acute serous otitis media, left ear melanie - Other otitis externa, left ear melanie Followup: melanie - With: Private Physician - When: 2 - 3 days - Reason: Recheck today's complaints, Continuance of care, Re-evaluation by your physician Followup: melanie - With: Yoon Rivera MD - When: 2 - 3 days - Reason: Recheck today's complaints, Re-evaluation by your physician Discharge Instructions: - Discharge Summary Sheet melanie - Ear Drops, Adult melanie - Otitis Media, Adult melanie - Otitis Externa melanie - Otitis Externa, [id number]-[id number] melanie - Otitis Media, Adult, [id number] melanie - Ear Drops, Adult, [id number] melanie Forms: - Medication Reconciliation Form melanie - Antibiotic Education melanie - Prescription Opioid Use melanie - Patient Portal Instructions [facility] - Leadership Thank You Letter [facility] - Work release form tm6 Prescriptions: - acetaminophen-codeine 300-30 mg Oral tablet - take 2 tablet ORAL route every 6 hours; 20 tablet; Refills: 0, Product melanie Selection Permitted - Diclofenac Sodium 75 mg Oral tablet, delayed release (enteric coated) - take 1 tablet ORAL route 2 times per day; 20 tablet; Refills: 0, Product melanie Selection Permitted - Ciprodex 0.3-0.1 % Otic drops, suspension - instill 4 drops OTIC route every 12 hours for 7 days , for ears ONLY; 7.5 drop; melanie Refills: 0, Product Selection Permitted - levofloxacin 750 mg Oral tablet - take 1 tablet ORAL route once daily; 7 tablet; Refills: 0, Product Selection melanie Permitted Signatures: Vinicius Jones MD MD cha Martinez, Clarissa RN RN cm10 Antonietta King RN RN tm6
--- NOTE | 2023-08-31 10:41 | ER ---
Nurse's Notes [facility] Name: Adina Watkins Age: 37 yrs Sex: Female : 1985 Arrival Date: 08/31/2023 Time: 03:12 Bed 16 Private MD: Diagnosis: Acute serous otitis media, left ear;Other otitis externa, left ear Presentation: 08/30 03:37 Chief complaint: Patient states: Left ear pain onset 2 days ago. Pt was seen at [facility] on Sunday and was placed on ABX. Pt states that the pain is now worse. Coronavirus screen: Client denies travel out of the [place] in the last 14 days. At this time, the client does not indicate any symptoms associated with coronavirus-19. Ebola Screen: Patient denies travel to an Ebola-affected area in the 21 days before illness onset. No symptoms or risks identified at this time. Initial Sepsis Screen: Does the patient meet any 2 criteria? HR > 90 bpm. Does the patient have a suspected source of infection? No. Patient's initial sepsis screen is negative. Risk Assessment: Do you want to hurt yourself or someone else? Patient reports no desire to harm self or others. Onset of symptoms was August 31, 2023. 03:37 Method Of Arrival: Ambulatory cm10 03:37 Acuity: CARTER 4 cm10 Triage Assessment: 03:39 General: Appears in no apparent distress. comfortable, Behavior is calm, cooperative. cm10 Pain: Complains of pain in left ear. Neuro: No deficits noted. Level of Consciousness is awake, alert, obeys commands, Oriented to person, place, time, situation. Historical: - Allergies: 03:38 PENICILLINS; cm10 - PMHx: 03:38 GERD; Hypertensive disorder; Hypothyroidism; Migraines; Rheumatoid Arthritis; cm10 - PSHx: 03:38 Appendectomy; Tonsillectomy; cm10 - Immunization history:: Adult Immunizations up to date. - Infectious Disease History:: Denies. - Social history:: Smoking status: Patient reports the use of cigarette tobacco products, denies chronic smoking, but will smoke occasionally, Reported history of juuling and/or vaping. - Family history:: not pertinent. Screenin:38 [facility] ED Fall Risk Assessment (Adult) History of falling in the last 3 months, tm6 including since admission No falls in past 3 months (0 pts) Confusion or Disorientation No (0 pts) Intoxicated or Sedated No (0 pts) Impaired Gait No (0 pts) Mobility Assist Device Used No (0 pt) Altered Elimination No (0 pt) Score/Fall Risk Level 0 - 2 = Low Risk Oriented to surroundings, Maintained a safe environment. Abuse screen: Denies threats or abuse. Denies injuries from another. Nutritional screening: No deficits noted. Tuberculosis screening: No symptoms or risk factors identified. Assessment: 03:38 General: Appears in no apparent distress. Behavior is calm, cooperative. Pain: tm6 Complains of pain in left ear Pain currently is 7 out of 10 on a pain scale. Quality of pain is described as aching, Pain began 2-3 days ago. Is continuous. Neuro: Level of Consciousness is awake, alert, obeys commands, Oriented to person, place, time, situation. Cardiovascular: No deficits noted. Patient's skin is warm and dry. Respiratory: No deficits noted. Airway is patent Respiratory effort is even, unlabored, Respiratory pattern is regular, symmetrical. GI: No signs and/or symptoms were reported involving the gastrointestinal system. Abdomen is round non-distended. : No signs and/or symptoms were reported regarding the genitourinary system. EENT: Reports pain in left ear since Sunday. Derm: No signs and/or symptoms reported regarding the dermatologic system. Musculoskeletal: No signs and/or symptoms reported regarding the musculoskeletal system. 04:22 Reassessment: Patient states feeling better. tm6 04:34 Reassessment: patient states she feels like she may pass out. VS rechecked. Discharge tm6 pending patient feeling better. MD notified. 04:39 Reassessment: patient states she no longer feels like she is going to pass out, just tm6 feels sleepy. RN reminded patient that two of the medications given could make her feel sleepy. This education was also provided prior to medication administration. Vital Signs: 03:37 BP 128 / 96; Pulse 95; Resp 16; Temp 98.5; Pulse Ox 100% on R/A; Weight 120.2 kg; cm10 Height 5 ft. 6 in. ; Pain 7/10; 04:22 BP 112 / 62; Pulse 82; Resp 19; Temp 97.5(TE); Pulse Ox 100% on R/A; Pain 0/10; tm6 04:35 BP 113 / 70; Pulse 80; Pulse Ox 98% on R/A; Pain 0/10; tm6 03:37 Body Mass Index 42.77 (120.20 kg, 167.64 cm) cm10 03:37 Pain Scale: Adult cm10 04:22 Pain Scale: Adult tm6 04:35 Pain Scale: Adult tm6 ED Course: 03:27 Patient arrived in ED. ra3 03:29 Antonietta King, BENNETT is Primary Nurse. tm6 03:32 Vinicius Jones MD is Attending Physician. melanie 03:38 Triage completed. cm10 03:38 Patient has correct armband on for positive identification. Placed in gown. Bed in low tm6 position. Call light in reach. Side rails up X 1. Provided Education on: use of call de la cruz. Client placed on continuous cardiac and pulse oximetry monitoring. NIBP monitoring applied. Pulse ox on. NIBP on. Door closed. Pillow given. 03:39 Arm band placed on Patient placed in an exam room, on a stretcher. cm10 04:03 Yoon Rivera MD is Referral Physician. melanie 04:22 No provider procedures requiring assistance completed. Patient did not have IV access tm6 during this emergency room visit. Administered Medications: 04:06 Drug: HYDROmorphone IM 2 mg IM once Route: IM; Site: right deltoid; tm6 04:06 Drug: Promethazine IM 25 mg IM once Route: IM; Site: left deltoid; tm6 04:06 Drug: LevOfloxacin PO 750 mg PO once Route: PO; tm6 04:07 Not Given (medication not availablee): ciprodexdrops 4 drops Otic once tm6 04:17 Drug: Rocephin (cefTRIAXone) IM 1 grams IM once Route: IM; Site: right ventrogluteal; tm6 Medication: 03:38 VIS not applicable for this client. tm6 Outcome: 04:03 Discharge ordered by . melanie 04:23 Discharged to home ambulatory, with family, tm6 04:23 Condition: stable 04:23 Discharge instructions given to patient, family, Instructed on discharge instructions, follow up and referral plans. medication usage, Demonstrated understanding of instructions, follow-up care, medications, Prescriptions given X 4, 04:40 Patient left the ED. tm6 Signatures: Vinicius Jones MD MD cha Martinez, Clarissa, RN RN cm10 Antonietta King RN RN tm6 Cydney Dumont 3
--- OUTSIDE RECORDS SUMMARY | 2023-08-31 10:44 | XMS REPORT | Continuity of Care Document ---
Author Name Unknown Address [address] [facility] [address] [place] [id number] [facility] [address] [facility] [address] [place] [address] Care Team Providers Care Monogram Maker Name Role Phone Harvey Waterman MD Primary Care Physician JAGJIT JOYCE Attending Clinician Unavailable SARA VILLA Attending Clinician Unavailable MAYNOR BATISTA Attending Clinician Unavailable LISS ANAYA Attending Clinician Unavail able TAMIKO PEREZ Attending Clinician Unavailable SUNNI AHMADI Attending Clinician Unavailable ESTEBAN GAMBLE Attending Clinician Unavailable PAULA FREDERICK Attending Clinician Unavailable LAB47 Attending Clinician Unavailable TRIP KANG Attending Clinician Unavailable JERRY GRIFFIN Attending Clinician Unavailable [email or web address] Attending Clinician Unavaila YEHUDA Newman Attending Clinician Unavailable MARILYN GUERRA Attending Clinician Unavailab DORETHA Villagomez Attending Clinician Unavailab Christy Jauregui Attending Clinician Unavailable LAB90 Attending Clinician Unavailable BRENDA KENNEY Attending Clinician Unavailabl e LAB76 Attending Clinician Unavailable RAHUL KING Attending Clinician Unavailable RYAN SLADE Attending Clinician Unavailab HARVEY Machado Attending Clinician Unava ilable Liss Anaya MD Attending Clinician Guevara RIVERS, Harvey Power Attending Clinician [phone] DARYL ARREOLA Attending Clinician Unavailable [id number] Attending Clinician Unavailable GIANLUCA GORMAN Attending Clinician Unavailable Provider, [facility] Attending Clinician Un available Triny Mitchell Attending Clinician [phone] [email or web address] Admitting Clinician Unavaila ble KNOW, DOES_NOT Admitting Clinician Unavailable Payers Payer Name Policy Type Policy Number Effective Date Expirati on Date Source [employer] MP [facility] ON/OFF 9 [id number] 2023 00:00:00 [facility] 2 [id number] 2020 00:00:00 Problems Condition Name Condition Details Condition Category Status Onset Date Resolution Date Last Treatment Date Treating Clinician Comments Source Immunodefi ciency due to [facility] drug therapy (multi HCC) 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 HCC) Disease Active 2-13 00:00: 00 Serina Seybold - Externa l Other fatigue Other fatigue Disease Active 01-26 00:00: 00 Serina Seybold - Externa l Nausea Nausea Disease Active 01-26 00:00: 00 Serina Seybold - Externa l Migraine without status migrainosu s, not intractabl e Migraine without status migrainosu s, not intractabl e Disease Active 08-15 00:00: 00 Serina Seybold - Externa l Hypothyroi dism, adult Hypothyroi dism, adult Disease Active 08-15 00:00: 00 Serina Seybold - Externa l Primary hypertensi on Primary hypertensi on Disease Active 08-15 00:00: 00 Serina Seybold - Externa l Anxiety Anxiety Disease Active 08-15 00:00: 00 Serina Seybold - Externa l Exercise-i nduced asthma (HHS-HCC) Exercise-i nduced asthma (HHS-HCC) Disease Active 08-15 00:00: 00 Serina Seybold - Externa l Obesity Obesity Disease Active 20211-02 00:00: 00 Serina Sutherland - Externa l Rheumatoid arthritis (multi HCC) Rheumatoid arthritis (multi HCC) Disease Active 11-02 00:00: 00 Serina Sutherland - Externa l No known active problems No known active problems Disease [facility] Allergies, Adverse Reactions, Alerts Allergy Name Allergy Type Status Severity Reaction(s) Onset Date Inactive Date Treating Clinician Comments Source No Known Allergie s DA Active U 2022-04 00:00: 00 [facility] [place] Penicill in Propensi ty to adverse reaction s to drug Active Other - See comments 11-10 00:00: 00 [facility] PENICILL IN DRUG INGREDI Active Low Other-Cmnt 11-10 00:00: 00 [facility] Penicill ins Propensi ty to adverse reaction s Active Other 11-02 00:00: 00 Serina Sutherland Penicill ins Propensi ty to adverse reaction s Active Other 11-02 00:00: 00 Black tarry stools, ulcer type symtoms Serina Abebe Externa l NO KNOWN ALLERGIE S Drug Class Active [facility] Social History Social Habit Start Date Stop Date Quantity Comments Source Gender identity 2021-05-23 04:55:10 Identifies as female gender (finding) Serina Sutherland - External History SDOH Alcohol Frequency Serina park - External History SDOH Alcohol Std Drinks Serina mack - External History SDOH Alcohol Binge Serina Sutherland - External Exposure to SARS-CoV-2 (event) Not sure Serina mack History of tobacco use Cigarette Smoker Serina gomez - External Sexual orientation Khurram chase Sutherland - External Alcohol intake 2023-06-12 00:00:00 2023-06-12 00:00:00 Current drinker of alcohol (finding) Serina Sutherland - External History of Social function 2023-01-15 00:00:00 2023-01-15 00:00:00 Serina Sutherland - External Cigarettes smoked current (pack per day) - Reported 2022-08-01 00:00:00 2022-08-01 00:00:00 Serina Sutherland - External Cigarette pack-years 2022-08-01 00:00:00 2022-08-01 00:00:00 Serina Sutherland - External Tobacco use and exposure 2022-08-01 00:00:00 2022-08-01 00:00:00 Smokeless tobacco non-user Serina Abebe External Alcohol Comment 2020-12-23 00:00:00 2020-12-23 00:00:00 occasionally Serina Perkinsfrederick Andrae Strong Sex Assigned At 1985 00:00:00 1985 00:00:00 F Serina Abebe External Smoking Status Start Date Stop Date Source Heavy tobacco smoker 2022-08-01 00:00:00 Serina Strong Current every day smoker 2020-11-10 00:00:00 [facility] Medications Ordered Medication Name Filled Medication Name Start Date Stop Date Current Medication? Ordering Clinician Indication Dosage Frequency Signature (SIG) Comments Components Source Methylpredn isolone Acetate (DEPO-MEDRO L) [80 mg/ml] 06-12 17:15: 00 06-12 17:19 :00 No [id number] 80mg Serina singh Methotrexat e Sodium 2.5 MG oral Tablet 06-12 00:00: 00 Yes [id number] 20mg Take 8 tablets (20 mg total) by mouth once a week. Serina singh miSOPROStol (CYTOTEC) 100 MCG oral Tablet 05-07 00:00: 00 Yes [id number] Take one pill the night before and one the morning of the procedure (IUD). Let it melt against your cheek. Serina singh methylPREDN ISolone (Medrol) 4 MG oral Tablet Therapy Pack 2022-04 00:00: 00 Yes [id number] 1{beatris} Take 1 beatris by mouth See Admin Instructio ns Use as directed.. Serina singh Desloratadi ne (Clarinex) 5 MG oral Tablet 2022-04 0-11 00:00: 00 Yes 5mg Take 1 tablet (5 mg total) by mouth daily. Serina singh Lansoprazol e (PREVACID OR) 01-26 08:28: 21 01-26 00:00 :00 No Take by mouth Serina singh Ondansetron HCl 4 MG oral Tablet 01-26 00:00: 00 Yes [id number] 4mg [id number] 3D Take 1 tablet (4 mg total) by mouth every 8 hours as needed for nausea. Serina singh Lansoprazol e (Prevacid) 30 MG oral Delayed Release Capsule 01-26 00:00: 00 Yes [id number] 30mg Take 1 capsule (30 mg total) by mouth daily. Serina singh Desloratadi ne (Clarinex) 5 MG oral Tablet 01-26 00:00: 00 Yes [id number] 5mg Take 1 tablet (5 mg total) by mouth daily. Serina singh Methotrexat e 2.5 MG oral Tablet 01-26 00:00: 00 06-12 00:00 :00 No [id number] 10mg Take 4 tablets (10 mg total) by mouth once a week. Serina singh Methotrexat e 2.5 MG oral Tablet 01-22 00:00: 00 01-26 00:00 :00 No [id number] 20mg TAKE 8 TABLETS (20 MG TOTAL) BY MOUTH ONCE A WEEK. Serina singh Norethindro ne, Contracepti ve, 0.35 MG oral Tablet 10-13 00:00: 00 Yes [id number] .35mg Take 1 tablet (0.35 mg total) by mouth daily Serina signh Duloxetine HCl [address] Particles 10-07 00:00: 00 Yes [id number] TAKE 1 CAPSULE BY MOUTH EVERY DAY Serina singh Lansoprazol e (PREVACID OR) 09-19 10:35: 25 Yes Take by mouth Serina singh Lansoprazol e (PREVACID OR) 09-19 08:02: 48 Yes Take by mouth Serina singh Azithromyci n 250 MG oral Tablet 09-19 00:00: 00 01-26 00:00 :00 No [id number] Take 2 tablets by mouth on day 1 then 1 tablet by mouth daily for 4 days thereafter . Serina singh Lansoprazol e (PREVACID OR) 08-15 14:10: 10 Yes Take by mouth Serina singh Bupropion HCL XL 150 MG OR TB24 08-15 00:00: 00 Yes [id number] 150mg Take 1 tablet (150 mg total) by mouth daily Serina singh Lisinopril 10 MG oral Tablet 08-15 00:00: 00 Yes [id number] 10mg Take 1 tablet (10 mg total) by mouth daily Serina singh Levothyroxi ne Sodium 75 MCG oral Tablet 08-15 00:00: 00 Yes [id number] 75ug Take 1 tablet (75 mcg total) by mouth daily Serina singh Amitriptyli ne HCl 150 MG oral Tablet 08-15 00:00: 00 Yes [id number] 150mg Take 1 tablet (150 mg total) by mouth nightly Serina singh Duloxetine HCl [address] Particles 08-09 00:00: 00 Yes [id number] 20mg Take 1 capsule (20 mg total) by mouth daily Serina singh Methylpredn isolone Acetate (DEPO-MEDRO L) [80 mg/ml] 08-01 20:00: 00 08-01 19:55 :00 No [id number] 80mg Serina singh Lansoprazol e (PREVACID OR) 08-01 14:36: 16 Yes Take by mouth Serina singh Methotrexat e 2.5 MG oral Tablet 08-01 00:00: 00 Yes [id number] 15mg Take 6 tablets (15 mg total) by mouth once a week Serina singh Duloxetine HCl [address] Particles 3-04 00:00: 00 Yes [id number] TAKE ONE CAPSULE BY MOUTH DAILY Serina singh Cholecalcif rich 1.25 MG (36929 UT) oral Capsule 1-05 00:00: 00 08-15 00:00 :00 No [id number] Take 1 capsule (50,000 units total) by mouth twice a week for 8 doses Serina singh Ketorolac Tromethamin e (TORADOL) 60 mg/2 mL 1-03 20:45: 00 05-02 20:53 :00 No [id number] 60mg Serina singh Lansoprazol e (PREVACID OR) 1- 14:21: 59 Yes Take by mouth Serina singh Methotrexat e 2.5 MG oral Tablet 1-03 00:00: 00 Yes 10mg Take 4 tablets (10 mg total) by mouth once a week Indication s: 4 tabs weekly Serina singh Duloxetine HCl [address] Particles 1-03 00:00: 00 Yes [id number] 20mg Take 1 capsule (20 mg total) by mouth daily Serina singh Methotrexat e 2.5 MG oral Tablet 8-06 00:00: 00 05-02 00:00 :00 No [id number] 20mg TAKE 8 TABLETS (20 MG TOTAL) BY MOUTH ONCE A WEEK. Sreina singh Levothyroxi ne Sodium 75 MCG oral Tablet -21 00:00: 00 08-15 00:00 :00 No [id number] TAKE 1 TABLET BY MOUTH DAILY Serina singh Eletriptan Hydrobromid e 40 MG oral Tablet 7-13 00:00: 00 Yes [id number] 40mg TAKE 1 TABLET (40 MG TOTAL) BY MOUTH NEEDED FOR MIGRAINE MAY REPEAT IN 2 HOURS IF NECESSARY Serina singh Lisinopril 10 MG oral Tablet 6-14 00:00: 00 08-15 00:00 :00 No [id number] 10mg Take 1 tablet (10 mg total) by mouth daily Serina singh Methylpredn isolone Acetate (DEPO-MEDRO L) [80 mg/ml] 09-20 19:45: 00 09-20 19:45 :00 No [id number] 80mg Serina Sutherland Lansoprazol e (PREVACID OR) 09-20 14:21: 20 Yes Take by mouth Serina Sutherland Methotrexat e 2.5 MG oral Tablet 09-20 00:00: 00 Yes [id number] 20mg Take 8 tablets (20 mg total) by mouth once a week Serina Sutherland Amitriptyli ne HCl 150 MG oral Tablet 09-12 00:00: 00 08-15 00:00 :00 No [id number] TAKE 1 TABLET BY MOUTH AT NIGHT Serina singh Lansoprazol e (PREVACID OR) 07-04 14:00: 13 Yes Take by mouth Serina Sutherland Azithromyci n 250 MG oral Tablet 07-04 00:00: 00 Yes [id number] Take 1 tablets by mo on day #1 then 1 tablet by mouth for the next 4 days Serina Sutherland Lisinopril 10 MG oral Tablet 07-04 00:00: 00 Yes [id number] 10mg Take 1 tablet (10 mg total) by mouth in the morning. Serina Sutherland Lansoprazol e (PREVACID OR) 06-21 14:28: 18 Yes Take by mouth Serina Sutherland MEDROXYPROG EST RAYMUNDO, CONTRACEP, 150 MG/ML intramuscul ar Suspension 06-15 00:00: 00 08-15 00:00 :00 No INJECT 1 ML INTRAMUSCU LAR DIRECTED Serina singh Loratadine (CLARITIN) 10 MG oral tablet 06-13 00:00: 00 Yes 1{tbl} Take 1 tablet by mouth in the morning. Serina singh Fluocinolon e Acetonide 0.01 % otic Oil 06-13 00:00: 00 Yes LOCATION: BOTH EARS. APPLY FIVE DROPS TO AFFECTED EAR AT BEDTIME NEEDED FOR ITCHING Serina singh Loratadine (CLARITIN) 10 MG oral tablet 06-13 00:00: 00 01-26 00:00 :00 No 10mg Take 1 tablet (10 mg total) by mouth daily. Serina singh medroxyPROG ESTERone Acetate 150 MG/ML intramuscul ar Suspension Prefilled Syringe 06-13 00:00: 00 08-15 00:00 :00 No Serina singh Azelastine HCl 0.1 % nasal Solution 06-02 00:00: 00 Yes SPRAY 2 SPRAY BY INTRANASAL ROUTE 2 TIMES EVERY DAY IN EACH NOSTRIL. Serina singh Cetirizine HCl (ZYRTEC OR) 05-30 14:17: 51 05-30 00:00 :00 No Take by mouth Serina Sutherland Ciprofloxac in HCl 500 MG oral Tablet 05-30 00:00: 00 Yes [id number] 500mg Take 1 tablet (500 mg total) by mouth 2 times daily Serina Sutherland methylPREDN ISolone (Medrol) 4 MG oral Tablet Therapy Pack 05-30 00:00: 00 08-15 00:00 :00 No [id number] 1{beatris} Take 1 beatris by mouth See Admin Instructio ns Use as directed. Serina singh Pseudoeph-B romphen-DM (Bromfed DM) 30-2-10 MG/5ML oral Syrup 05-30 00:00: 00 08-15 00:00 :00 No [id number] 10mL Q.25D Take 10 mL by mouth 4 times daily as needed Serina singh Albuterol HFA 108 (90 Base) MCG/ACT IN AERS 05-23 00:00: 00 Yes Serina singh Azithromyci n 250 MG oral Tablet 05-23 00:00: 00 07-04 00:00 :00 No Serina Sutherland Lansoprazol e (PREVACID OR) 2020-04- 15:04: 13 Yes Take by mouth Serina Sutherland Methotrexat e 2.5 MG oral Tablet 2020-04 00:00: 00 09-20 00:00 :00 No [id number] 20mg Take 8 tablets (20 mg total) by mouth once a week Serina Sutherland Azithromyci n 250 MG oral Tablet 2020-04 00:00: 00 04-17 05:59 :00 No [id number] Take 2 tablets by mouth on day 1 then 1 tablet by mouth daily for 4 days thereafter . Serina Sutherland Methotrexat e 2.5 MG oral Tablet 2020-04-16 00:00: 00 Yes [id number] 10mg Take 4 tablets (10 mg total) by mouth once a week Serina Sutherland methylPREDN ISolone (Medrol) 4 MG oral Tablet Therapy Pack 2020-04- 00:00: 00 05-30 00:00 :00 No 1{beatris} Take 1 beatris by mouth See Admin Instructio ns Use as directed. Serina Sutherland Lansoprazol e (PREVACID OR) 2020-04 16:13: 29 Yes Take by mouth Serina Sutherland Medroxyprog esterone (DEPO-PROVE RA) [150 mg/mL] - Once Every 3 Months 2020-04 0-05 05:00: 00 01-27 04:59 :00 No [id number] 150mg Serina Sutherland Lansoprazol e (PREVACID OR) 12-23 15:39: 54 Yes Take by mouth Serina Sutherland Medroxyprog esterone Acetate (DEPO-PROVE RA) 150 mg/mL - Once Every 3 Months 11-16 05:00: 00 11-11 04:59 :00 No [id number] 150mg Serina Sutherland Amitriptyli ne HCl 150 MG oral Tablet 11-16 00:00: 00 Yes [id number] 150mg Take 1 tablet (150 mg total) by mouth nightly Serina Sutherland Levothyroxi ne Sodium 75 MCG oral Tablet 11-16 00:00: 00 Yes [id number] 75ug Take 1 tablet (75 mcg total) by mouth daily Serina Sutherland Lisinopril 5 MG oral Tablet 11-16 00:00: 00 07-04 00:00 :00 No [id number] 5mg Take 1 tablet (5 mg total) by mouth daily Serina Sutherland Eletriptan Hydrobromid e (Relpax) 40 MG oral Tablet 09-30 00:00: 00 Yes [id number] 40mg Take 1 tablet (40 mg total) by mouth as needed for migraine may repeat in 2 hours if necessary Serina Sutherland Dextrometho eleazar-gucarlosF ENesin (Mucinex DM) 30-600 MG oral Tablet 12 Hour Sustained Release 09-28 00:00: 00 Yes [id number] 1-2 tablets twice daily with a full glass of water as needed for cough and congestion Serina Sutherland Loperamide HCl (Imodium A-D) 2 MG oral Tablet 09-28 00:00: 00 01-26 00:00 :00 No [id number] Take as per package instructio n For diarrhea Serina singh Ondansetron (ZOFRAN) 8 MG oral tablet 09-28 00:00: 00 08-15 00:00 :00 No [id number] 8mg Q.[id number] 3D Take 1 tablet (8 mg total) by mouth every 8 hours as needed for nausea Serina singh Azithromyci n 250 MG oral Tablet 09-28 00:00: 00 04-11 00:00 :00 No [id number] 2 tablets at once on day 1, then 1 tablet daily from day 2 to day 5 Serina Sutherland ibuprofen (MOTRIN) 600 mg tablet 01-11 00:00: 00 11-10 00:00 :00 No 600mg Take 1 tablet by mouth every 6 (six) hours as needed for Pain (scale 4-6). [facility] cetirizine (ZYRTEC) 10 mg tablet 01-09 19:18: 46 Yes 10mg Take 10 mg by mouth daily. [facility] AMITRIPTYLI NE HCL (AMITRIPTYL INE ORAL) 01-09 19:18: 26 Yes Take by mouth. [facility] LEVOTHYROXI NE SODIUM (SYNTHROID ORAL) 01-09 19:18: 26 Yes Take by mouth. [facility] LOSARTAN POTASSIUM (LOSARTAN ORAL) 01-09 19:18: 26 Yes Take by mouth. [facility] propranolol (INDERAL) 60 mg tablet 01-09 19:18: 26 Yes 60mg Take 60 mg by mouth daily. [facility] eletriptan (RELPAX) 40 mg tablet 01-09 19:18: 26 Yes 40mg Take 40 mg by mouth as needed. May repeat in 2 hours if necessary [facility] amitriptyli ne (ELAVIL) 100 mg tablet 01-09 19:18: 25 Yes 100mg Take 100 mg by mouth at bedtime. [facility] acetaminoph en-codeine (TYLENOL #3) 300-30 mg tablet 01-09 19:18: 25 Yes 1{tbl} Take 1 tablet by mouth as needed. [facility] Dexlansopra zole (DEXILANT) 60 mg capsule 01-09 19:18: 25 Yes 60mg Take 60 mg by mouth daily. [facility] levothyroxi ne (SYNTHROID) 50 mcg tablet 01-09 19:18: 25 Yes 50ug Take 50 mcg by mouth every morning. [facility] losartan (COZAAR) 50 mg tablet 01-09 19:18: 25 Yes 50mg Take 50 mg by mouth daily. [facility] albuterol (PROAIR HFA) 90 mcg/actuati on inhaler 01-09 19:18: 25 Yes 2{puff} Inhale 2 Puffs every 6 (six) hours as needed for Wheezing or Shortness of Breath. [facility] sulfamethox azole-trime thoprim (BACTRIM DS) 800-160 mg per tablet 01-02 00:00: 00 Yes 1{tbl} Take 1 tablet by mouth every 12 (twelve) hours. [facility] dicyclomine (BENTYL) 20 mg tablet 01-02 00:00: 00 Yes 20mg Take 1 tablet by mouth as needed for Abdominal pain (TO MAX OF QID). [facility] famotidine (PEPCID) 20 mg tablet 01-02 00:00: 00 Yes 20mg Take 1 tablet by mouth at bedtime. [facility] proMETHazin e (PHENERGAN) 25 mg tablet 01-02 00:00: 00 Yes 25mg Take 1 tablet by mouth every 6 (six) hours as needed for Nausea and Vomiting (N/V) (TO MAX OF QID). [facility] Immunizations Ordered Immunization Name Filled Immunization Name Date Status Comments Source Meningococcal Vaccine- Conjugate(Menactra) 2011-03-20 00:00:00 Completed Serina Sutherland Meningococcal Vaccine- Conjugate(Menactra) 2011-03-20 00:00:00 Completed Serina Sutherland Meningococcal Vaccine- Conjugate(Menactra) 2011-03-20 00:00:00 Completed Serina Sutherland Meningococcal Vaccine- Conjugate(Menactra) 2011-03-20 00:00:00 Completed Serina Sutherland Meningococcal Vaccine- Conjugate(Menactra) 2011-03-20 00:00:00 Completed Serina Sutherland Meningococcal Vaccine- Conjugate(Menactra) 2011-03-20 00:00:00 Completed Serina Sutherland Meningococcal Vaccine- Conjugate(Menactra) 2011-03-20 00:00:00 Completed Serina Sutherland - External Meningococcal Vaccine- Conjugate(Menactra) 2011-03-20 00:00:00 Completed Serina Sutherland - External Meningococcal Vaccine- Conjugate(Menactra) 2011-03-20 00:00:00 Completed Serina Sutherland - External Meningococcal Vaccine- Conjugate(Menactra) 2011-03-20 00:00:00 Completed Serina Sutherland Meningococcal Vaccine- Conjugate(Menactra) 2011-03-20 00:00:00 Completed Serina Seybold - External Meningococcal Vaccine- Conjugate(Menactra) 2011-03-20 00:00:00 Completed Serina Seybold - External Meningococcal Vaccine- Conjugate(Menactra) 2011-03-20 00:00:00 Completed Serina Seybold - External Meningococcal Vaccine- Conjugate(Menactra) 2011-03-20 00:00:00 Completed Serina Seybold Meningococcal Vaccine- Conjugate(Menactra) 2011-03-20 00:00:00 Completed Serina Seybold Td (adult), 2 Lf tetanus toxoid, preservative free, adsorbed 2002-02-18 00:00:00 Completed Serina Seybold Td (adult), 2 Lf tetanus toxoid, preservative free, adsorbed 2002-02-18 00:00:00 Completed Serina Seybold Td (adult), 2 Lf tetanus toxoid, preservative free, adsorbed 2002-02-18 00:00:00 Completed Serina Seybold Td (adult), 2 Lf tetanus toxoid, preservative free, adsorbed 2002-02-18 00:00:00 Completed Serina Seybold Td (adult), 2 Lf tetanus toxoid, preservative free, adsorbed 2002-02-18 00:00:00 Completed Serina Seybold Td (adult), 2 Lf tetanus toxoid, preservative free, adsorbed 2002-02-18 00:00:00 Completed Serina Seybold Td (adult), 2 Lf tetanus toxoid, preservative free, adsorbed 2002-02-18 00:00:00 Completed Serina Seybold - External Td (adult), 2 Lf tetanus toxoid, preservative free, adsorbed 2002-02-18 00:00:00 Completed Serina Seybold - External Td (adult), 2 Lf tetanus toxoid, preservative free, adsorbed 2002-02-18 00:00:00 Completed Serina Seybold - External Td (adult), 2 Lf tetanus toxoid, preservative free, adsorbed 2002-02-18 00:00:00 Completed Serina Seybold - External Td (adult), 2 Lf tetanus toxoid, preservative free, adsorbed 2002-02-18 00:00:00 Completed Serina Seybold Td (adult), 2 Lf tetanus toxoid, preservative free, adsorbed 2002-02-18 00:00:00 Completed Serina Seybold - External Td (adult), 2 Lf tetanus toxoid, preservative free, adsorbed 2002-02-18 00:00:00 Completed Serina Seybold - External Td (adult), 2 Lf tetanus toxoid, preservative free, adsorbed 2002-02-18 00:00:00 Completed Serina Perkinsybold Td (adult), 2 Lf tetanus toxoid, preservative free, adsorbed 2002-02-18 00:00:00 Completed Serina Seybold Meningococcal Vaccine- Conjugate(Menactra) Unknown Completed Serina S eybold - External Td (adult), 2 Lf tetanus toxoid, preservative free, adsorbed Unknown Completed Serina Seybold - External Meningococcal Vaccine- Conjugate(Menactra) Unknown Completed Serina S eybold - External Td (adult), 2 Lf tetanus toxoid, preservative free, adsorbed Unknown Completed Serina Seybold - External Meningococcal Vaccine- Conjugate(Menactra) Unknown Completed Serina S eybold - External Td (adult), 2 Lf tetanus toxoid, preservative free, adsorbed Unknown Completed Serina Seybold - External Meningococcal Vaccine- Conjugate(Menactra) Unknown Completed Serina S eybold - External Td (adult), 2 Lf tetanus toxoid, preservative free, adsorbed Unknown Completed Serina Seybold - External Vital Signs Vital Name Observation Time Observation Value Comments S ource Systolic blood pressure 2023-06-12 17:19:00 144 mm[Hg] Serina Perkinsybo ld - External Diastolic blood pressure 2023-06-12 17:19:00 93 mm[Hg] Serina Seybo ld - External Heart rate 2023-06-12 17:19:00 98 /min Sugar y Seybold - External Respiratory rate 2023-06-12 17:19:00 16 /min Serina Seybold - External Body height 2023-06-12 17:19:00 167.6 cm Jihan ey Seybold - External Body weight 2023-06-12 17:19:00 121.564 kg Jihan ey Seybold - External BMI 2023-06-12 17:19:00 43.26 kg/m2 Jihan ey Seybold - External Systolic blood pressure 2023-05-07 20:11:00 155 mm[Hg] Serina Seybo ld - External Diastolic blood pressure 2023-05-07 20:11:00 88 mm[Hg] Serina Seybo ld - External Heart rate 2023-05-07 20:11:00 91 /min Kelse y Seybold - External Body height 2023-05-07 20:11:00 167.6 cm Jihan ey Seybold - External Body weight 2023-05-07 20:11:00 121.11 kg Jihan ey Seybold - External BMI 2023-05-07 20:11:00 43.09 kg/m2 Jihan ey Seybold - External Systolic blood pressure 2023-01-26 13:28:00 110 mm[Hg] Serina Seybo ld - External Diastolic blood pressure 2023-01-26 13:28:00 70 mm[Hg] Serina Seybo ld - External Heart rate 2023-01-26 12:57:00 100 /min Kelse y Seybold - External Body temperature 2023-01-26 12:57:00 37.11 Sonja Serina Seybold - External Respiratory rate 2023-01-26 12:57:00 14 /min Serina Seybold - External Body height 2023-01-26 12:57:00 167.6 cm Jihan ey Seybold - External Body weight 2023-01-26 12:57:00 121.11 kg Jihan ey Seybold - External BMI 2023-01-26 12:57:00 43.09 kg/m2 Jihan ey Seybold - External Systolic blood pressure 2022 15:34:00 152 mm[Hg] Serina Seybo ld - External Diastolic blood pressure 2022 15:34:00 96 mm[Hg] Serina Seybo ld - External Heart rate 2022 15:34:00 96 /min Kelse y Seybold - External Body height 2022 15:34:00 167.6 cm Jihan ey Seybold - External Body weight 2022 15:34:00 120.657 kg Jihan ey Seybold - External BMI 2022 15:34:00 42.93 kg/m2 Jihan ey Seybold - External Body weight 2022 13:01:00 120.203 kg Jihan ey Seybold - External BMI 2022 13:01:00 42.77 kg/m2 Jihan ey Seybold - External Systolic blood pressure 2022-08-15 19:07:00 118 mm[Hg] Serina Seybo ld - External Diastolic blood pressure 2022-08-15 19:07:00 84 mm[Hg] Serina Seybo ld - External Heart rate 2022-08-15 19:07:00 118 /min Kelse y Seybold - External Body temperature 2022-08-15 19:07:00 36.39 Sonja Serina Seybold - External Respiratory rate 2022-08-15 19:07:00 16 /min Serina Seybold - External Body height 2022-08-15 19:07:00 167.6 cm Jihan ey Seybold - External Body weight 2022-08-15 19:07:00 118.842 kg Jihan ey Seybold - External BMI 2022-08-15 19:07:00 42.29 kg/m2 Jihan ey Seybold - External Oxygen saturation in Arterial blood by Pulse oximetry 2022-08-15 19:07:00 98 /min Serina Seybo ld - External Systolic blood pressure 2022-08-01 19:35:00 118 mm[Hg] Serina Seybo ld - External Diastolic blood pressure 2022-08-01 19:35:00 84 mm[Hg] Serina Seybo ld - External Heart rate 2022-08-01 19:35:00 86 /min Kelse y Seybold - External Body height 2022-08-01 19:35:00 167.6 cm Jihan ey Seybold - External Body weight 2022-08-01 19:35:00 121.836 kg Jihan ey Seybold - External BMI 2022-08-01 19:35:00 43.35 kg/m2 Jihan ey Seybold - External Systolic blood pressure 2022-05-02 20:25:00 129 mm[Hg] Serina Seybo ld - External Diastolic blood pressure 2022-05-02 20:25:00 89 mm[Hg] Serina Seybo ld - External Heart rate 2022-05-02 20:25:00 112 /min Kelse y Seybold - External Body temperature 2022-05-02 20:25:00 36.78 Sonja Serina Seybold - External Respiratory rate 2022-05-02 20:25:00 16 /min Serina Seybold - External Body height 2022-05-02 20:25:00 167.6 cm Jihan ey Seybold - External Body weight 2022-05-02 20:25:00 121.564 kg Jihan ey Seybold - External BMI 2022-05-02 20:25:00 43.26 kg/m2 Jihan ey Seybold - External Systolic blood pressure 2021-09-20 19:16:00 122 mm[Hg] Serina Seybo ld Diastolic blood pressure 2021-09-20 19:16:00 85 mm[Hg] Serina Seybo ld Heart rate 2021-09-20 19:16:00 102 /min Kelse y Seybold Body temperature 2021-09-20 19:16:00 36.61 Sonja Serina Seybold Respiratory rate 2021-09-20 19:16:00 16 /min Serina Seybold Body height 2021-09-20 19:16:00 167.6 cm Jihan ey Seybold Body weight 2021-09-20 19:16:00 115.214 kg Jihan ey Seybold BMI 2021-09-20 19:16:00 41.00 kg/m2 Jihan ey Seybold Systolic blood pressure 2021-07-04 19:58:00 165 mm[Hg] Serina Seybo ld Diastolic blood pressure 2021-07-04 19:58:00 97 mm[Hg] Serina Seybo ld Heart rate 2021-07-04 19:58:00 119 /min Kelse y Seybold Body temperature 2021-07-04 19:58:00 36.28 Sonja Serina Seybold Respiratory rate 2021-07-04 19:58:00 18 /min Serina Seybold Body height 2021-07-04 19:58:00 167.6 cm Jihan ey Seybold Body weight 2021-07-04 19:58:00 117.028 kg Jihan ey Seybold BMI 2021-07-04 19:58:00 41.64 kg/m2 Jihan ey Seybold Systolic blood pressure 2021-06-21 20:22:00 152 mm[Hg] Serina Seybo ld Diastolic blood pressure 2021-06-21 20:22:00 99 mm[Hg] Serina Seybo ld Heart rate 2021-06-21 20:22:00 69 /min Kelse y Seybold Respiratory rate 2021-06-21 20:22:00 16 /min Serina Seybold Body height 2021-06-21 20:22:00 167.6 cm Jihan ey Seybold Body weight 2021-06-21 20:22:00 116.574 kg Jihan ey Seybold BMI 2021-06-21 20:22:00 41.48 kg/m2 Jihan ey Seybold Systolic blood pressure 2021-04-19 21:01:00 156 mm[Hg] Serina Seybo ld Diastolic blood pressure 2021-04-19 21:01:00 96 mm[Hg] Serina Seybo ld Heart rate 2021-04-19 21:01:00 109 /min Kelse y Seybold Respiratory rate 2021-04-19 21:01:00 16 /min Serina Seybold Body height 2021-04-19 21:01:00 167.6 cm Jihan ey Seybold Body weight 2021-04-19 21:01:00 115.667 kg Jihan ey Seybold BMI 2021-04-19 21:01:00 41.16 kg/m2 Jihan ey Seybold Systolic blood pressure 2021-02-15 20:36:00 134 mm[Hg] Serina Seybo ld Diastolic blood pressure 2021-02-15 20:36:00 88 mm[Hg] Serina Seybo ld Heart rate 2021-02-15 20:36:00 88 /min Kelse y Seybold Body temperature 2021-02-15 20:36:00 36.39 Sonja Serina Seybold Respiratory rate 2021-02-15 20:36:00 16 /min Serina Seybold Body height 2021-02-15 20:36:00 167.6 cm Jihan ey Seybold Body weight 2021-02-15 20:36:00 117.935 kg Jihan Sutherland BMI 2021-02-15 20:36:00 41.97 kg/m2 Jihan Sutherland Systolic blood pressure 2020-11-10 13:55:00 124 mm[Hg] [facility] Diastolic blood pressure 2020-11-10 13:55:00 85 mm[Hg] [facility] Heart rate 2020-11-10 13:55:00 92 /min [facility] 2020-11-10 13:55:00 36.94 Sonja [facility] Respiratory rate 2020-11-10 13:55:00 18 /min [facility] Body height 2020-11-10 13:55:00 167.6 cm [facility] Body weight 2020-11-10 13:55:00 113.399 kg [facility] BMI 2020-11-10 13:55:00 40.35 kg/m2 [facility] Oxygen saturation in Arterial blood by Pulse oximetry 2020-11-10 13:55:00 100 /min [facility] Encounters Start Date/Time End Date/Time Encounter Type Admission Type Attending [facility] Facility Care Department Encounter ID Source 2023-10-31 15:30:00 2023-10-31 15:30:00 Outpatient JAGJIT JOYCE [id number] Ser[facility] 2023-10-01 15:30:00 2023-10-01 15:30:00 Outpatient SARA VILLA [id number] Serina [facility] 2023-09-05 15:30:00 2023-09-05 15:30:00 Outpatient MAYNOR BATISTA [id number] [facility]-04 15:15:00 2023-09-04 15:15:00 Outpatient LISS ANAYA [id number] [facility] 2023-09-03 15:30:00 2023-09-03 15:30:00 Outpatient TAMIKO PEREZ [id number] Serina Sutherland 2023-08-25 00:00:00 2023-08-25 00:00:00 Outpatient DAIANA SUNNI FERNANDSE [id number] [facility] 2023-08-21 15:00:00 2023-08-21 15:00:00 Outpatient MARIA DEL CARMEN JAGJIT FERNANDES [id number] [facility] 2023-08-15 00:00:00 2023-08-15 00:00:00 Outpatient SUNNI AHMADI [id number] [facility] 2023-08-15 00:00:00 2023-08-15 00:00:00 Outpatient AHMADISUNNI [id number] [facility] 2023-08-14 16:00:00 2023-08-14 16:00:00 Outpatient ESTEBAN GAMBLE [id number] [facility] 2023-08-14 11:15:00 2023-08-14 11:15:00 Outpatient LISS ANAYA [id number] [facility] 2023-08-07 16:30:00 2023-08-07 16:30:00 Outpatient PAULA FREDERICK [id number] [facility] 2023-08-03 15:00:00 2023-08-03 15:00:00 Outpatient SARA VILLA [id number] [facility] 2023-08-01 00:00:00 2023-08-01 00:00:00 Outpatient SUNNI AHMADI [id number] [facility] 2023-07-27 11:00:00 2023-07-27 11:00:00 Outpatient JAGJIT JOYCE [id number] Serina Seybold 2023-07-16 10:30:00 2023-07-16 10:30:00 Outpatient ESTEBAN GAMBLE [id number] Serina Seybold 2023-07-01 00:00:00 2023-07-01 00:00:00 Outpatient LISS ANAYA [id number] Serina Seybold 2023-06-12 11:45:00 2023-06-12 11:45:00 Outpatient MARQUEZ FERNANDES [id number] [facility] 2023-06-12 11:15:00 2023-06-12 11:15:00 Outpatient SAUL LISSMAXIMILIANO FERNANDES [id number] [facility] 2023-06-05 10:30:00 2023-06-05 10:30:00 Outpatient ESTEBAN GAMBLE SERINA FERNANDES [id number] [facility] 2023-05-30 11:15:00 2023-05-30 11:15:00 Outpatient HO, JAGJIT SERINA FERNANDES [id number] [facility] 2023-05-29 10:45:00 2023-05-29 10:45:00 Outpatient SAUL LISS FERNANDES [id number] [facility] 2023-05-15 11:30:00 2023-05-15 11:30:00 Outpatient TRIP KANG SERINA FERNANDES [id number] [facility] 2023-05-15 11:30:00 2023-05-15 11:30:00 Outpatient ESTEBAN GAMBLE SERINA FERNANDES [id number] [facility] 2023-05-08 00:00:00 2023-05-08 00:00:00 Outpatient HO, JAGJITCINTHIA FERNANDES [id number] [facility] 2023-05-07 14:30:00 2023-05-07 14:30:00 Outpatient HO, JAGJIT FERNANDES [id number] Serina Seybold 2023-05-07 00:00:00 2023-05-07 00:00:00 Outpatient HO, JAGJIT FERNANDES [id number] Serina Seybold 2023-05-07 00:00:00 2023-05-07 00:00:00 Outpatient JERRY GRIFFIN [id number] Serina Seybold 2023-05-01 13:30:00 2023-05-01 13:30:00 Outpatient SAUL LISS FERNANDES [id number] Serina Seybold 2023-04-20 00:00:00 2023-04-20 00:00:00 Outpatient JERRY GRIFFIN [id number] Serina Seybold 2023-04-11 00:00:00 2023-04-11 00:00:00 Outpatient LISS ANAYA SERINA FERNANDES [id number] Serina patricia 2023-04-11 00:00:00 2023-04-11 00:00:00 Outpatient CASPER ANAYANAYELY FERNANDES [id number] [facility] 2023-02-28 00:00:00 2023-02-28 00:00:00 Outpatient GC_GCBZW_Ka diyala_S [facility] [id number] [facility] 2023-02-23 14:45:00 2023-02-23 14:45:00 Outpatient YEHUDA LOZADA [id number] [facility] 2023-02-18 00:00:00 2023-02-18 00:00:00 [facility] [id number] [facility] 11:00:00 2023-02-15 11:00:00 Outpatient MARILYN GUERRA [id number] [facility] 2023-02-07 09:20:00 2023-02-07 09:20:00 Outpatient DORETHA JORGENSEN [id number] [facility] 2023-02-02 19:50:00 2023-02-02 22:30:00 Emergency EM Christy Calixto [facility] [id number] [address] [facility] [place] 2023-01-26 13:15:00 2023-01-26 13:15:00 Outpatient ANAYA, LISSMAXIMILIANO FERNANDES [id number] Serina [facility] 2023-01-26 12:30:00 2023-01-26 12:30:00 Outpatient LISS ANAYA [id number] Ser[facility] 2023-01-26 08:50:00 2023-01-26 08:50:00 Outpatient LAB90 SERINA FERNANDES [id number] Serina [facility] 2023-01-26 08:00:00 2023-01-26 08:00:00 Outpatient YEHUDA LOZADA [id number] [facility] 2023-01-25 00:00:00 2023-01-25 00:00:00 Outpatient LISS ANAYA SERINA FERNANDES [id number] [facility] 2023-01-24 15:45:00 2023-01-24 15:45:00 Outpatient LISS ANAYA SERINA FERNANDES [id number] [facility] 2023-01-24 00:00:00 2023-01-24 00:00:00 Outpatient LISS ANAYA SERINA FERNANDES [id number] [facility] 2023-01-19 00:00:00 2023-01-19 00:00:00 Outpatient LISS ANAYA SERINA FERNANDES [id number] [facility] 2022-12-19 14:15:00 2022-12-19 14:15:00 Outpatient LISS ANAYA SERINA FERNANDES [id number] Serina [facility] 2022-11-07 13:45:00 2022-11-07 13:45:00 Outpatient LISS ANAYA SERINA FERNANDES [id number] [facility] 2022-10-12 18:45:00 2022-10-12 18:45:00 Outpatient BRENDA KENNEY SERINA FERNANDES [id number] Ser[facility] 2022-10-11 00:00:00 2022-10-11 00:00:00 Outpatient JAGJIT JOYCE [id number] [facility] 2022-10-07 00:00:00 2022-10-07 00:00:00 Outpatient LISS ANAYA SERINA FERNANDES [id number] [facility] 2022-10-02 14:15:00 2022-10-02 14:15:00 Outpatient MARQUEZ FERNANDES [id number] [facility] 2022-10-02 13:15:00 2022-10-02 13:15:00 Outpatient SERINA FERNANDES [id number] Serina Sefred[facility]ick 2022-09-22 00:00:00 2022-09-22 00:00:00 Outpatient JAGJIT JOYCE [id number] Serina Seybold 2022 11:15:00 2022 11:15:00 Outpatient AHMADISUNNI SERINA FERNANDES [id number] Serina Seybold 2022 11:05:00 2022 11:05:00 Outpatient BLAZE SERINA FERNANDES [id number] Serina Seybold 2022 10:30:00 2022 10:30:00 Outpatient JAGJIT JOYCE SERINA FERNANDES [id number] Serina Seybold 2022 08:00:00 2022 08:00:00 Outpatient AHMADISUNNI SERINA FERNANDES [id number] Serina Seybpatricia 2022-09-15 08:30:00 2022-09-15 08:30:00 Outpatient RAHUL KING SERINA FERNANDES [id number] [facility] 2022-08-15 13:45:00 2022-08-15 13:45:00 Outpatient SUNNI AHMADI [id number] [facility] 2022-08-14 14:00:00 2022-08-14 14:00:00 Outpatient BERLIN RYANNICOLASA FERNANDES [id number] [facility] 2022-08-12 00:00:00 2022-08-12 00:00:00 Outpatient HARVEY WATERMAN [id number] [facility] 2022-08-09 00:00:00 2022-08-09 00:00:00 Outpatient LISS ANAYA [id number] [facility] 2022-08-09 00:00:00 2022-08-09 00:00:00 Outpatient HARVEY WATERMAN [id number] Serina Seybold 2022-08-09 00:00:00 2022-08-09 00:00:00 Outpatient HARVEY WATERMAN [id number] Serina Seybold 2022-08-09 00:00:00 2022-08-09 00:00:00 Outpatient HARVEY WATERMAN [id number] [facility] 2022-08-09 00:00:00 2022-08-09 00:00:00 Outpatient LISS ANAYA SERINA [id number] [facility] 2022-08-09 00:00:00 2022-08-09 00:00:00 Outpatient LISS ANAYA SERINA [id number] Serina Sutherland 2022-08-03 00:00:00 2022-08-03 00:00:00 Outpatient LISS ANAYA SERINA FERNANDES [id number] Serina [facility] 2022-08-01 15:15:00 2022-08-01 15:15:00 Outpatient LABBenny SERINA SERINA [id number] [facility] 2022-08-01 14:45:00 2022-08-01 14:45:00 Outpatient LISS ANAYA SERINA FERNANDES [id number] Serina patricia 2022-07-01 00:00:00 2022-07-01 00:00:00 Outpatient LISS ANAYA SERINA FERNANDES [id number] Ser[facility] 2022-05-03 00:00:00 2022-05-03 00:00:00 Outpatient LISS ANAYA SERINA FERNANDES [id number] [facility] 2022-05-03 00:00:00 2022-05-03 00:00:00 Outpatient LISS ANAYA SERINA FERNANDES [id number] Serina patricia 2022-05-02 14:55:00 2022-05-02 14:55:00 Outpatient LABBenny SERINA FERNANDES [id number] [facility] 2022-05-02 14:15:00 2022-05-02 14:15:00 Outpatient LISS ANAYA SERINA FERNANDES [id number] Serina ybpatricia 2022-03-28 13:00:00 2022-03-28 13:00:00 Outpatient LISS ANAYA SERINA FERNANDES [id number] Serina patricia 2022-01-04 00:00:00 2022-01-04 00:00:00 Outpatient LISS ANAYA [facility] [id number] [facility] 2021-12-27 14:15:00 2021-12-27 14:15:00 Outpatient LAB47 SERINA FERNANDES [id number] Serina [facility] 2021-12-27 13:45:00 2021-12-27 14:00:00 Office Visit Liss Anaya 1.2.840.114 [id number] [id number] Serina Sutherland 2021-09-30 15:30:00 2021-09-30 15:30:00 Outpatient GUEVARAKITTYAN SERINA FERNANDES [id number] Serina [facility] 2021-09-21 00:00:00 2021-09-21 00:00:00 Outpatient LISS ANAYA SERINA [id number] Serina Sutherland 2021-09-20 15:00:00 2021-09-20 15:00:00 Outpatient LAB SERINA SERINA [id number] [facility] 2021-09-20 14:30:00 2021-09-20 14:45:00 Office Visit Liss Anaya 1.2.840.114 [id number] [id number] Serina Perkinspatricia 2021-08-16 16:45:00 2021-08-16 16:45:00 Outpatient LISS ANAYA SERINA [id number] Serina Sutherland 2021-08-10 14:45:00 2021-08-10 14:45:00 Outpatient HARVEY WATERMAN [id number] Serina [facility] 2021-08-02 14:30:00 2021-08-02 14:30:00 Outpatient GUEVARAHARVEY [id number] [facility] 2021-07-04 14:00:00 2021-07-04 14:30:00 Office Visit Harvey Waterman [place] 1.2.840.114 350.1.13.13 [id number] [id number] [facility] 2021-06-21 14:30:00 2021-06-21 14:45:00 Office Visit Liss Anaya 1.2.840.114 [id number] [id number] Serina Sutherland 2021-06-07 08:30:00 2021-06-07 08:30:00 Outpatient HARVEY WATERMAN SERINA FERNANDES [id number] Serina Sutherland 2021-05-30 14:00:00 2021-05-30 14:18:57 Telemedici ne Harvey Waterman Tono Sumit Uribe 1.2.840.114 350.1.13.13 [id number] [id number] Serina Sutherland 2021-05-24 11:15:00 2021-05-24 11:15:00 Outpatient GUEVARA, HARVEY SERINA FERNANDES [id number] Serina Sutherland 2021-04-19 15:30:00 2021-04-19 15:30:00 Outpatient [facility] SERINA FERNANDES [id number] Serina Perkinspatricia 2021-04-19 15:00:00 2021-04-19 15:15:00 Office Visit Liss Anaya 1.2.840.114 350.1.13.13 [id number] [id number] Serina Sutherland 2021-04-11 13:30:00 2021-04-11 13:30:00 Telemedici humphrey HARVEY WATERMAN [place] 1.2.840.114 350.1.13.13 [id number] [id number] Serina Sutherland 2021-03-15 15:02:33 2021-03-15 15:11:41 Telemedici ne Liss Anaya 1.2.840.114 350.1.13.13 [id number] [id number] Serina Sutherland 2021-02-19 00:00:00 2021-02-19 00:00:00 Outpatient LISS ANAYA [id number] Serina Sutherland 2021-02-18 00:00:00 2021-02-18 00:00:00 Outpatient LISS ANAYA SERINA [id number] Serina Sutherland 2021-02-15 15:28:17 2021-02-15 15:58:17 Office Visit Liss Anaya 1.2.840.114 350.1.13.13 [id number] [id number] Serina Sutherland 2021-02-15 15:50:00 2021-02-15 15:50:00 Outpatient LABBenny SERINA FERNANDES [id number] Serina Sutherland 2021-02-09 14:29:06 2021-02-09 14:47:11 Telemedici Harvey Flores [facility] 1.2.840.114 350.1.13.13 [id number] [id number] Serina Sutherland 2021-02-08 15:00:00 2021-02-08 15:00:00 Outpatient INJ, DARYL SERINA FERNANDES [id number] Serinamary Sutherland 2021-01-11 15:15:00 2021-01-11 15:15:00 Outpatient LISS ANAYA SERINA FERNANDES [id number] Serina Sutherland 2020-12-23 17:00:00 2020-12-23 17:00:00 Outpatient [id number] SERINA FERNANDES [id number] Serina Sutherland 2020-12-23 15:30:00 2020-12-23 15:30:00 Outpatient GORMAN GIANLUCA FERNANDES [id number] Serina godwinpatricia 2020-11-16 16:30:00 2020-11-16 16:30:00 Outpatient INJ, DARYL SERINA FERNANDES [id number] Serina patricia 2020-11-10 10:00:00 2020-11-10 10:00:00 Outpatient R [facility] [id number] [facility] 2020-11-10 08:14:2020-11-10 09:20:05 Urgent Care Provider, [facility] 1.2.840.114 350.1.13.10 [id number] [id number] [facility] 2020-11-10 00:00:00 2020-11-10 00:00:00 Outpatient HARVEY WATERMAN [id number] Serina Sutherland 2020-11-04 00:00:00 2020-11-04 00:00:00 Outpatient HARVEY WATERMAN [id number] Serina Sutherland Results Test Description Test Time Test Comments Results Resul t Comments Source - CT NECK W/CONTRAST 2023-02-02 21:50:[facility] 1985 Sex: F Name: ADINA NGUYEN [facility] : 1985 Age/S: 37 / F [id number] [address] [place] Unit #: [id number] Loc: [place] [address] Phys: Christy Calixto MD Acct: [id number] Dis Date: Status: REG ER PHONE #: [phone] Exam Date: 02/02/20232105 FAX #: Reason: mass EXAMS: CPT: [id number] CT NECK W/CONTRAST 95678 EXAM: - CT NECK W/CONTRAST HISTORY: mass, . TECHNIQUE: Axial imaging obtained from the skull base to the thoracic inlet with IV contrast. Sagittal and coronal reconstructions were performed. A total of was utilized. CT scan performed using appropriate/available dose optimization/reductio n techniques. Automated exposure control, adjustment of the MAA and/or KV according to patient size, and or use of IV iterative reconstruction images. COMPARISON: None FINDINGS: Soft tissues:The nasopharynx, peritonsillar fossa, supraglottic and glottic regions are unremarkable. The parotid glands and submandibular glands are normal in size and symmetric without evidence for focal masses or areas of abnormal enhancement seen. Lymph nodes:Few less than 1 cm lymph nodes are seen in the bilateral anterior triangle and submental regions. Airway: Normal 1.6 cm left maxillary sinus retention cyst versus polyp. Tiny 3 mm a maxillary sinus retention cyst versus polyp seen. IMPRESSION: No neck masses or adenopathy seen. Dictation/location code: H-100 at 2149 Reported and signed by: KYLEE ZHONG M.D. PAGE 1 Signed Report (CONTINUED) Name: ADINA NGUYEN [facility] : 1985 Age/S: 37 / F [address] [address] [place] Unit #: [id number] Loc: [place] [address] Phys: Christy Calixto MD Acct: [id number] Dis Date: Status: REG ER PHONE #: [phone] Exam Date: 02/02/20232105 FAX #: Reason: mass EXAMS: CPT: [id number] CT NECK W/CONTRAST 15712 (Continued) CC: Christy Calixto MD; Martir Rodriguez NP Technologist:Galindo Ruiz RT(R); Cam CTDI: DLP: Trnscb Date/Time: 02/02/2023 (2149) [id number] Orig Print D/T: S: 02/02/2023 (2152) PAGE 2 Signed Report BASIC METABOLIC [id number] 20:54:00* Test Item Value Reference Range Interpretation Comme nts SODIUM (test code = NA) 141 mmol/L 134-147 N POTASSIUM (test code = K) 4.0 mmol/L 3.4-5.0 N CHLORIDE (test code = CL) 110 mmol/L 100-108 H CARBON DIOXIDE (test code = CO2) 27 mmol/L 21-32 N ANION GAP (test code = GAP) 4.0 GAP calc 4.0-15.0 N GLUCOSE (test code = GLU) 84 MG/DL 70-110 N BLOOD UREA NITROGEN (test code = BUN) 12 MG/DL 7-18 N GLOMERULAR FILTRATION RATE (test code = GFR) >=60 max estimate estGFR >60 The Glomerular Filtration Rate is a calculated parameterbased on serum Creatinine, patient age and sex. GFR valuesless than 60 mL/min/1.73 square meters are indicative ofChronic Kidney Disease. Values less than 15 mL/min/1.73square meters indicate Kidney failure. The calculation forGFR is based on the CKD-EPI (2020) calculation. This formulais race indifferent and is the recommended formula for GFRby the National Kidney Foundation for Adults.The GFR will not calculate if the sex is unknown or if thepatient's age is <18 years. CREATININE (test code = CREAT) 0.8 MG/DL 0.6-1.0 N CALCIUM (test code = CA) 8.2 MG/DL 8.5-10.1 L CBC W/AUTO [id number] 20:33:00* Test Item Value Reference Range Interpretation Comme nts WHITE BLOOD CELL (test code = WBC) 7.1 K/mm3 3.5-11.0 N RED BLOOD CELL (test code = RBC) 4.39 M/mm3 4.70-6.10 L HEMOGLOBIN (test code = HGB) 12.3 G/DL 10.4-14.9 N HEMATOCRIT (test code = HCT) 38.0 % 31.5-44.1 N MEAN CELL VOLUME (test code = MCV) 86.6 Fl 84.5-98.6 N MEAN CELL HGB (test code = MCH) 28.0 pg 27.0-34.2 N MEAN CELL HGB CONCETRATION (test code = MCHC) 32.4 G/DL 31.5-34.0 N RED CELL DISTRIBUTION WIDTH (test code = RDW) 13.0 SD 11.5-14.5 N PLATELET COUNT (test code = PLT) 205 K/mm3 150-450 N MEAN PLATELET VOLUME (test c ode = MPV) 11.00 fL 7.0-10.5 H NEUTROPHIL % (test code = NT%) 56.3 % 40-76 N IMMATURE GRANULOCYTE % (test code = IG%) 0.4 % 0.0-5.0 N LYMPHOCYTE % (test code = LY%) 35.3 % 20.5-51.1 N MONOCYTE % (test code = MO%) 4.5 % 1.7-9.3 N EOSINOPHIL % (test code = EO%) 2.9 % 0.0-6.0 N BASOPHIL % (test code = BA%) 0.6 % 0.0-2.0 N NUCLEATED RBC % (test code = NRBC%) 0.0 /100WBC% 0.0-1.0 N NEUTROPHIL # (test code = NT#) 4.0 K/mm3 1.8-7.6 N IMMATURE GRANULOCYTE # (test code = IG#) 0.03 x10 3/uL 0.00-0.03 N LYMPHOCYTE # (test code = LY#) 2.5 K/mm3 0.6-3.2 N MONOCYTE # (test code = MO#) 0.3 K/mm3 0.3-1.1 N EOSINOPHIL # (test code = EO#) 0.2 K/mm3 0.0-0.4 N BASOPHIL # (test code = BA#) 0.0 K/mm3 0.0-0.1 N NUCLEATED RBC # (test code = NRBC#) 0.0 K/mm3 0.0-0.1 N MANUAL DIFF REQUIRED (test c ode = MDIFF) NO DIFF/SCN CRITERIA Notes Date/Time Note Provider Source 2023-06-12 11:21:29 JfikNNxBx2lKmcFKmjLv qmHZ4L8efBx4GlnhdVt2H O2VrVsGcM608kmdaDc8wIfv6902-80-33W08:21:2 9 Chief ComplaintPatient presents withFollow-upMARYANN HuffN 72747-5Mnchf EzfqZX5521-46-98L11:21:49Nurse NoteTXT1.2.840.499819.1.13.131.2.7.2.7278 79|[id number] for patient ytrm54198-2Nltus NoteLNNARRATIVEFormatted C-CDA narrative textRichard [place] [id number] [facility] [id number] -02-13T11:21:491.2.840.851993.1.72.3.15|1 .2.840.319827.1.13.131.2.7.2.727879_39978 7282 [facility] 2023-05-07 14:11:41 qMAOOFL/ZVIaKEtl+pKp OBFvVTzEkmF6GRgJ7Zalp z8YT0pxGU244dwmF6MTay813895-37-35E58:11:4 1 Adina Davisbuckyesperanza is here today forChief ComplaintPatient presents withUterine ProlapsePatient's last menstrual period was 04/23/2023. Control Method: OCP'sAdditional concerns patient would like to address with provider: n/a 97962-1Wasef HuhxRR6050-57-79E16:12:13Nurse NoteTXT1.2.840.975585.1.13.131.2.7.2.7278 79|[id number] for patient tdul58209-8Gdwse NoteLNNARRATIVEFormatted C-CDA narrative textR[facility]– [place] [facility] [id number] -01-08T14:12:131.2.840.192073.1.72.3.15|1 .2.840.064261.1.13.131.2.7.2.727879_39113 5812 [facility] 2023-02-02 20:16:00 [id number] 0-06T20:16:00 [facility])EMERGENCY PROVIDER REPORTREPORT#:[id number] REPORT STATUS: SignedDATE:02/02/23 TIME:2015 PATIENT: ADINA NGUYEN UNIT #: [id number]#: [id number] ROOM/BED:: 85 AGE: 37 SEX: F PCP PHYS: Lona Khanna MDSERVICE AUTHOR: Martir Rodriguez 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 She noticed that there a month ago. Lump on the left side. Sometimes it swells up and resolved. She stated she went to the urgent care 2 days ago. Tested negative for strep, COVID, flu. Concerned that it may be a mass. Deniesfever, chills, body aches, difficulty swallowing, respiratory distress, cough. Reports that she is a 20-year smoker. GeneralConfirmed Patient YesInitial Greet Date/Time 02/02/231953 PresentationChief Complaint Sore throat Review of Systems ROS StatementsAll systems rev neg except as marked. Focused Review of SystemsEars/Nose/ThroatReports: Sore throat. Past Medical History - AdultStated Complaint LEFT SIDE LUMP ON THROATAllergiesCoded Allergies:No Known Allergies (02/02/23) Calculated Suicide Risk (nurs) No riskPast Medical History:Reports: GERD/gastritis, Hypertension, Thyroid disorder. Past Surgical History:Reports: Appendectomy, Tonsillectomy. Smoking status for patients 13 years old or older: Current every day smoker Physical Exam Vital SignsVital SignsFirst Documented: Result Date Time Pulse Ox 99 02/02 1955 B/P 137/96 02/02 1955 B/P Mean 109 02/02 1955 O2 Delivery Room air 02/02 1955 Temp 36.9 02/02 1955 Pulse 91 02/02 1955 Resp 14 02/02 1955 Last Documented: Result Date Time Pulse Ox 99 02/02 2230 B/P 136/94 02/02 2230 B/P Mean 108 02/02 2230 O2 Delivery Room air 02/02 2230 Temp 36.7 02/02 2230 Pulse 88 02/02 2230 Resp 16 02/02 2230 Review of Vital Signs Reviewed Basic Physical ExamBasic PE HEAD: Atraumatic/NC, EYES: PERRL, conj clear, RESP: No resp distress, CV: Reg rate rhythm, ABD: Soft/non-tender, SKIN: No rashes, warm/dry, NEURO: alert oriented, NEURO: gross movement NL, PSYCH: NL thought content Focused PEEars/Nose/Throat Ears/Nose/Throat Atraumatic, Airway patent, Tympanic membs NL, Ext aud canal NL, Mastoid area NLMS Neck Neck Atraumatic, Non-tender Interpretation Diagnostics Lab Results InterpretationResultsLaboratory Tests 02/02/232023:[Embedded Image Not Available]Laboratory Tests: 02/03 2024 Chemistry Serum , Qual (NEGATIVE SCREEN) SERUM NEGATIVE 02/03 2024 Chemistry Sodium (134 - 147 mmol/L) 141 Potassium (3.4 - 5.0 mmol/L) 4.0 Chloride (100 - 108 mmol/L) 110 H Carbon Dioxide (21 - 32 mmol/L) 27 Anion Gap (4.0 - 15.0 GAP calc) 4.0 BUN (7 - 18 MG/DL) 12 Creatinine (0.6 - 1.0 MG/DL) 0.8 Glomerular Filtr Rate (>60 estGFR) >=60 max estimate Glucose (70 - 110 MG/DL) 84 Calcium (8.5 - 10.1 MG/DL) 8.2 L Hematology WBC (3.5 - 11.0 K/mm3) 7.1 RBC (4.70 - 6.10 M/mm3) 4.39 L Hgb (10.4 - 14.9 G/DL) 12.3 Hct (31.5 - 44.1 %) 38.0 MCV (84.5 - 98.6 Fl) 86.6 MCH (27.0 - 34.2 pg) 28.0 MCHC (31.5 - 34.0 G/DL) 32.4 RDW (11.5 - 14.5 SD) 13.0 Plt Count (150 - 450 K/mm3) 205 MPV (7.0 - 10.5 fL) 11.00 H Neut % (Auto) (40 - 76 %) 56.3 Lymph % (Auto) (20.5 - 51.1 %) 35.3 Jones % (Auto) (1.7 - 9.3 %) 4.5 Eos % (Auto) (0.0 - 6.0 %) 2.9 Baso % (Auto) (0.0 - 2.0 %) 0.6 Neut # (Auto) (1.8 - 7.6 K/mm3) 4.0 Lymph # (Auto) (0.6 - 3.2 K/mm3) 2.5 Jones # (Auto) (0.3 - 1.1 K/mm3) 0.3 Eos # (Auto) (0.0 - 0.4 K/mm3) 0.2 Baso # (Auto) (0.0 - 0.1 K/mm3) 0.0 Abs Immat Gran (auto) (0.00 - 0.03 x10 3/uL) 0.03 Add Manual Diff (CRITERIA DIFF/SCN) NO Immature Gran % (0.0 - 5.0 %) 0.4 Nucleated RBC % (0.0 - 1.0 /100WBC%) 0.0 Recent Impressions:CAT SCAN - CT NECK W/CONTRAST 02/02 2103 Report Impression - Status: SIGNED Entered: 02/02/20232152 IMPRESSION: No neck masses or adenopathy seen. Dictation/location code: H-100Impression By: Karolina ZHONG M.D. Lab Imaging StatementLaboratory radiographic studies reviewed and considered in the medical decision-making. Point of Care TestingPulse Oximetry Pulse Ox % 99 On: Room air Interpretation Interpreted by me Re-Evaluation MDM ED CourseTime 2228Patient Course StableMedication(s) OrderedMedication(s) Ordered:Diagnostic Agents Sig/Piper Start time Last Medication Dose Route Stop Time Status Admin Iopamidol 0 .STK-MED ONE 02/02 2041 DC 02/02 IV 212 Electrolytic, Caloric, And Jac Sig/Piper Start time Last Medication Dose Route Stop Time Status Admin Sodium Chloride 50 ML .STK-MED ONE 02/02 2123 DC 02/02 IV 02/02 Safety Concerns Patient is safe Differential DiagnosisDifferential Diagnosis Cervical lymphadenitis, Epiglottitis, Herpangina, Herpetic stomatitis, Pharyngitis, acute, Pharyngitis, viral, Stomatitis, Tonsillitis, acute, Uvulitis Findings/Social DeterminantsPresentation AcuteSeverity Evaluation Non life-threateningDiagnosis Appears EvidentRelevant Comorbidities Immune disorder Patient Discharge Departure Vital Signs/ConditionVital SignsFirst Documented: Result Date Time Pulse Ox 99 02/02 1955 B/P 137/96 02/02 1955 B/P Mean 109 02/02 1955 O2 Delivery Room air 02/02 1955 Temp 36.9 02/02 1955 Pulse 91 02/02 1955 Resp 14 02/02 1955 Last Documented: Result Date Time Pulse Ox 99 02/02 2230 B/P 136/94 02/02 2230 B/P Mean 108 02/02 2230 O2 Delivery Room air 02/02 2230 Temp 36.7 02/02 2230 Pulse 88 02/02 2230 Resp 16 02/02 2230 All vital signs available at the time of this entry have been reviewed. Condition Stable Clinical ImpressionClinical ImpressionPrimary Impression: Lesion of throat Disposition DecisionDischarge )( Discharged to Home Yes )( Time 2226 )( Date 02/02/23 Discharge/Care PlanCounseled Regarding Diagnosis, Lab results, Imaging studies, Need for follow-up,When to return to EDPatient Instructions Acute PharyngitisAdditional InstructionsCT result shows nasal polyps. Patient aware results and reports that she does have a history of nasal polyps. Follow-up with ENT in 2 to 5 days. Call for appointment Discharge NoteI have spoken with the patient and/or caregivers. I have explained the patient'scondition, diagnoses and treatment plan based on the information available to meat this time. I have answered the patient's and/or caregiver's questions and addressed any concerns. The patient and/or caregivers have as good an understanding of the patient's diagnosis, condition and treatment plan as can beexpected at this point. The vital signs have been stable. The patient's condition is stable and appropriate for discharge from the emergency department. The patient will pursue further outpatient evaluation with the primary care physician or other designated or consulting physician as outlined in the discharge instructions. The patient and/or caregivers are agreeable to this planof care and follow-up instructions have been explained in detail. The patient and/or caregivers have received these instructions in written format and have expressed an understanding of the discharge instructions. The patient and/or caregivers are aware that any significant change in condition or worsening of symptoms should prompt an immediate return to this or the closest emergency department or a call to 911. Quality MeasuresPreg Test for Women w/Abd Pain Female age 14-50, Any preg test ordered Christy Calixto 02/07/23 0351:Re-Evaluation MDM Free Text MDM NotesFree Text MDM [id number] presents with a lump on the side of her neck has been present for greater than 1 month. Laboratory work obtained in addition to CT imaging. Patient Discharge Departure Discharge/Care PlanReferralsProvider Referral: Johan Smith MD Address: [address] [place] [address] [place] [address] Supervising Physician Note MidLv/Doc Saw Pt 2The PA/TETRYL NITRATOR OPERATOR has seen the patient and I have performed this visit along with the involvement of the PA/TETRYL NITRATOR OPERATOR. I agree with the PA/commercial stripper findings and plan. I have performed all aspects of MDM as documented including: evaluation of the patient/patient's condition(s), review and analysis of available data, and determinationof risk of patient management decisions. at 0024 at 0351 RPT #: [id number] OF REPORTEDEmerrivendell behavioral health services department [id number] for patient [id number]:36 HCAPM"
[2023-09-01 14:36] VITALS: BP 113/70; TEMP 97.5; O2SAT 98
== END 2023-08-31 04:40 | disposition home or self-care (01) ==
LOC: ER 03:12
DX: H65.02 Acute serous otitis media, left ear (principal); H60.8X2 Other otitis externa, left ear; F17.210 Nicotine dependence, cigarettes, uncomplicated; Z88.0 Allergy status to penicillin
CPT/HCPCS: 96372; 99284; J2550; J1170; J0696

== ENCOUNTER 2024-02-22 10:01 | Emergency (ER) | payer OTHER ==
--- OUTSIDE RECORDS SUMMARY | 2024-02-22 10:05 | XMS REPORT | Continuity of Care Document ---
Author Name Unknown Address [address] [facility] [address] [place] [address] [facility] Address [address] [facility] [address] [place] [address] Care Team Providers [facility] Director Name Role Phone Harvey Waterman MD Primary Care Physician NISREEN NDIAYE Attending Clinician Unavailable LISS ANAYA Attending Clinician Unavail able MARILYN GUERRA Attending Clinician Unavailab JAGJIT Whelan Attending Clinician Unavailable SUNNI AHMADI Attending Clinician Unavailable YEHUDA LOZADA Attending Clinician Unavailable BRENDA KENNEY Attending Clinician Unavailabl PAULA Morrow Attending Clinician Unavailable JERRY GRIFFIN Attending Clinician Unavailable SARA VILLA Attending Clinician Unavailable LAB90 Attending Clinician Unavailable MAYNOR BATISTA Attending Clinician Unavailable LAB47 Attending Clinician Unavailable LUDWIN WALLS Attending Clinician Unavailab TAMIKO Alanis Attending Clinician Unavailable DIANNA VALDEZ Attending Clinician Unavailab ESTEBAN Watt Attending Clinician Unavailable TRIP KANG Attending Clinician Unavailable [email or web address] Attending Clinician UnavailDORETHA Abebe Attending Clinician Unavailab Christy Jauregui Attending Clinician Unavailable LAB76 Attending Clinician Unavailable RAHUL KING Attending Clinician Unavailable RYAN SLADE Attending Clinician Unavailab HARVEY Machado Attending Clinician Carmela Anaya MD, Liss Goss Attending Clinician [phone] Harvey Waterman MD Attending Clinician [phone] DARYL ARREOLA Attending Clinician Unavailable [id number] Attending Clinician Unavailable GIANLUCA GORMAN Attending Clinician Unavailable Provider, [facility] Attending Clinician Un available Triny Mitchell Attending Clinician [phone] [email or web address] Admitting Clinician Unavaila ble KNOW, DOES_NOT Admitting Clinician Unavailable Payers Payer Name Policy Type Policy Number Effective Date Expirati on Date Source AET[employer] MP [facility] GOLD 4 [facility] ON/OFF 9 [id number] 2023 00:00:00 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 2-13 [...] (HHS-HCC) Exercise-i nduced asthma (HHS-HCC) Disease Active 2023-0 4-18 00:00: 00 Serina Sutherland - Externa l Obesity Obesity Disease Active 11-02 00:00: 00 Serina Sutherland - Externa l Rheumatoid arthritis (multi HCC) Rheumatoid arthritis (multi HCC) Disease Active 11-02 00:00: 00 Serina Sutherland - Externa l No known active problems No known active problems Disease [facility] Allergies, Adverse Reactions, Alerts Allergy Name Allergy Type Status Severity Reaction(s) Onset Date Inactive Date Treating Clinician Comments Source No Known Allergie s DA Active U 2022-04 0 00:00: 00 [facility] Penicill in Propensi ty to adverse reaction s to drug Active Other - See comments 11-10 00:00: 00 [facility] PENICILL IN DRUG INGREDI Active Low Other-Cmnt 11-10 00:00: 00 [facility] Penicill ins Propensi ty to adverse reaction s Active Other 11-02 00:00: 00 Serina Sutherland Penicill ins Propensi ty to adverse reaction s Active Other 11-02 00:00: 00 Black tarry stools, ulcer type symtoms Serina Abebe Externa l NO KNOWN ALLERGIE S Drug Class Active [facility] Social History Social Habit Start Date Stop [...] Smoker Serina gomez - External Sexual orientation K chase Sutherland - External Cigarettes smoked current (pack per day) - Reported 2023-09-04 00:00:00 2023-09-04 00:00:00 Serina Sutherland - External Cigarette pack-years 2023-09-04 00:00:00 2023-09-04 00:00:00 Serina Sutherland - External Tobacco use and exposure 2023-09-04 00:00:00 2023-09-04 00:00:00 Smokeless tobacco non-user Serina Sutherland - External Alcoholic beverage intake 2023-09-04 00:00:00 2023-09-04 00:00:00 Current drinker of alcohol (finding) Serina Sutherland - External Alcohol intake 2023-06-12 00:00:00 2023-06-12 00:00:00 Current drinker of alcohol (finding) Serina Sutherland - External History of Social function 2023-01-15 00:00:00 2023-01-15 00:00:00 Serina Sutherland - External Alcohol Comment 2020-12-23 00:00:00 2020-12-23 00:00:00 occasionally Serina Sutherland - Ligia Sex assigned at 1985 00:00:00 1985 00:00:00 F Serina Sutherland - Ligia Smoking Status Start Date Stop Date Source Heavy tobacco smoker 2023-09-04 00:00:00 Serina Strong Current every day smoker 2020-11-10 00:00:00 [facility] Medications Ordered Medication Name Filled Medication Name Start Date Stop Date Current Medication? Ordering Clinician Indication Dosage Frequency Signature (SIG) Comments Components Source Methylpredn isolone Acetate (DEPO-MEDRO L) [80 mg/ml] 09-03 20:30: 00 09-03 20:36 :00 No [id number] 80mg 80 mg, intramuscu lar, ONCE, On Sun09/04/23 at 1530, For 1 dose Serina singh Ciprofloxac in-dexAMETH asone 0.3-0.1 % otic Suspension 08-30 00:00: 00 Yes 4[drp] Place 4 drops into both ears 2 times daily. Serina singh levoFLOXaci n 750 MG oral Tablet 08-30 00:00: 00 Yes 750mg Take 1 tablet (750 mg total) by mouth daily. Serina singh Diclofenac Sodium 75 MG oral Tablet Delayed Response 08-30 00:00: 00 Yes 75mg Take 1 tablet (75 mg total) by mouth 2 times daily. Serina singh Amitriptyli ne HCl 150 MG oral Tablet 4 00:00: 00 Yes [id number] 150mg Take 1 tablet (150 mg total) by mouth nightly. Serina singh Levothyroxi ne Sodium 75 MCG oral Tablet 08-14 00:00: 00 Yes [id number] 75ug Take 1 tablet (75 mcg total) by mouth daily. Serina singh Bupropion HCL XL 150 MG OR TB24 08-14 00:00: 00 Yes [id number] 150mg Take 1 tablet (150 mg total) by mouth daily. Serina signh Lisinopril 10 MG oral Tablet 08-14 00:00: 00 Yes [id number] 10mg Take 1 tablet (10 mg total) by mouth daily. Serina singh Methotrexat e Sodium 2.5 MG oral Tablet 304 00:00: 00 Yes [id number] 20mg Take 8 tablets (20 mg total) by mouth once a week. Serina singh Methylpredn isolone Acetate (DEPO-MEDRO L) [80 mg/ml] 06-12 17:15: 00 06-12 17:19 :00 No [id number] 80mg Serina singh Methotrexat e Sodium 2.5 MG oral Tablet 06-12 00:00: 00 Yes [id number] 20mg Take 8 tablets (20 mg total) by mouth once a week. Serina singh miSOPROStol (CYTOTEC) 100 MCG oral Tablet -08 00:00: 00 Yes [id number] Take one pill the night before and one the morning of the procedure (IUD). Let it melt against your cheek. Serina singh methylPREDN ISolone (Medrol) 4 MG oral Tablet Therapy Pack 2022-04 00:00: 00 09-03 00:00 :00 No [id number] 1{beatris} Take 1 beatris by mouth See Admin Instructio ns Use as directed.. Serina singh Desloratadi ne (Clarinex) 5 MG oral Tablet 2022-04 011 00:00: 00 09-03 00:00 :00 No 5mg Take 1 tablet (5 mg total) by mouth daily. Serina singh Lansoprazol e (PREVACID OR) 01-26 08:28: 21 01-26 00:00 :00 No Take by mouth Serina singh Ondansetron HCl 4 MG oral Tablet 01-26 00:00: 00 Yes [id number] 4mg [id number] 3D Take 1 tablet (4 mg total) by mouth every 8 hours as needed for nausea. Serina singh Lansoprazol e (Prevacid) 30 MG oral Delayed Release Capsule 01-26 00:00: 00 Yes [id number] 30mg Take 1 capsule (30 mg total) by mouth daily. Serina singh Desloratadi ne (Clarinex) 5 MG oral Tablet 01-26 00:00: 00 Yes [id number] 5mg Take 1 tablet (5 mg total) by mouth daily. Serina singh Methotrexat e 2.5 MG oral Tablet 01-26 00:00: 00 06-12 00:00 :00 No [id number] 10mg Take 4 tablets (10 mg total) by mouth once a week. Serina singh Methotrexat e 2.5 MG oral Tablet 01-22 00:00: 00 01-26 00:00 :00 No [id number] 20mg TAKE 8 TABLETS (20 MG TOTAL) BY MOUTH ONCE A WEEK. Serina singh Norethindro ne, Contracepti ve, 0.35 MG oral Tablet 10-13 00:00: 00 Yes [id number] .35mg Take 1 tablet (0.35 mg total) by mouth daily Serina singh Duloxetine HCl [address] Particles 10-07 00:00: 00 Yes [id number] TAKE 1 CAPSULE BY MOUTH EVERY DAY Serina singh Lansoprazol e (PREVACID OR) 09-19 10:35: 25 Yes Take by mouth Serina singh Lansoprazol e (PREVACID OR) 09-19 08:02: 48 Yes Take by mouth Serina singh Azithromyci n 250 MG oral Tablet 09-19 00:00: 00 01-26 00:00 :00 No [id number] Take 2 tablets by mouth on day 1 then 1 tablet by mouth daily for 4 days thereafter . Serina singh Lansoprazol e (PREVACID OR) 08-15 14:10: 10 Yes Take by mouth Serina singh Bupropion HCL XL 150 MG OR TB24 08-15 00:00: 00 Yes [id number] 150mg Take 1 tablet (150 mg total) by mouth daily Serina singh Lisinopril 10 MG oral Tablet 08-15 00:00: 00 Yes [id number] 10mg Take 1 tablet (10 mg total) by mouth daily Serina singh Levothyroxi ne Sodium 75 MCG oral Tablet 08-15 00:00: 00 Yes [id number] 75ug Take 1 tablet (75 mcg total) by mouth daily Serina singh Amitriptyli ne HCl 150 MG oral Tablet 08-15 00:00: 00 Yes [id number] 150mg Take 1 tablet (150 mg total) by mouth nightly Serina singh Duloxetine HCl [address] Particles 08-09 00:00: 00 Yes [id number] 20mg Take 1 capsule (20 mg total) by mouth daily Serina singh Methylpredn isolone Acetate (DEPO-MEDRO L) [80 mg/ml] 08-01 20:00: 00 08-01 19:55 :00 No [id number] 80mg Serina singh Lansoprazol e (PREVACID OR) 2023-0 4-04 14:36: 16 Yes Take by mouth Serina singh Methotrexat e 2.5 MG oral Tablet 4-04 00:00: 00 Yes [id number] 15mg Take 6 tablets (15 mg total) by mouth once a week Serina singh Duloxetine HCl [address] Particles 3-04 00:00: 00 Yes [id number] TAKE ONE CAPSULE BY MOUTH DAILY Serina singh Cholecalcif rich 1.25 MG (65099 UT) oral Capsule 1-05 00:00: 00 08-15 00:00 :00 No [id number] Take 1 capsule (50,000 units total) by mouth twice a week for 8 doses Serina singh Ketorolac Tromethamin e (TORADOL) 60 mg/2 mL 1- 20:45: 00 05-02 20:53 :00 No [id number] 60mg Serina singh Lansoprazol e (PREVACID OR) 1- 14:21: 59 Yes Take by mouth Serina singh Methotrexat e 2.5 MG oral Tablet 1- 00:00: 00 Yes 10mg Take 4 tablets (10 mg total) by mouth once a week Indication s: 4 tabs weekly Serina singh Duloxetine HCl [address] Particles 1-03 00:00: 00 Yes [id number] 20mg Take 1 capsule (20 mg total) by mouth daily Serina singh Methotrexat e 2.5 MG oral Tablet 8-06 00:00: 00 05-02 00:00 :00 No [id number] 20mg TAKE 8 TABLETS (20 MG TOTAL) BY MOUTH ONCE A WEEK. Serina singh Levothyroxi ne Sodium 75 MCG oral Tablet 7-21 00:00: 00 08-15 00:00 :00 No [id number] TAKE 1 TABLET BY MOUTH DAILY Serina singh Eletriptan Hydrobromid e 40 MG oral Tablet 7-13 00:00: 00 Yes [id number] 40mg TAKE 1 TABLET (40 MG TOTAL) BY MOUTH NEEDED FOR MIGRAINE MAY REPEAT IN 2 HOURS IF NECESSARY Serina singh Lisinopril 10 MG oral Tablet 6-14 00:00: 00 08-15 00:00 :00 No [id number] 10mg Take 1 tablet (10 mg total) by mouth daily Serina singh Methylpredn isolone Acetate (DEPO-MEDRO L) [80 mg/ml] - 19:45: 00 09-20 19:45 :00 No [id number] 80mg Serina Sutherland Lansoprazol e (PREVACID OR) 09-20 14:21: 20 Yes Take by mouth Serina Sutherland Methotrexat e 2.5 MG oral Tablet 09-20 00:00: 00 Yes [id number] 20mg Take 8 tablets (20 mg total) by mouth once a week Serina Sutherland Amitriptyli ne HCl 150 MG oral Tablet -16 00:00: 00 08-15 00:00 :00 No [id number] TAKE 1 TABLET BY MOUTH AT NIGHT Serina singh Lansoprazol e (PREVACID OR) - 14:00: 13 Yes Take by mouth Serina Sutherland Azithromyci n 250 MG oral Tablet - 00:00: 00 Yes [id number] Take [address] [facility] on day #1 then 1 tablet by mouth for the next 4 days Serina Sutherland Lisinopril 10 MG oral Tablet 07-04 00:00: 00 Yes [id number] 10mg Take 1 tablet (10 mg total) by mouth in the morning. Serina Sutherland Lansoprazol e (PREVACID OR) - 14:28: 18 Yes Take by mouth Serina Sutherland MEDROXYPROG EST RAYMUNDO, CONTRACEP, 150 MG/ML intramuscul ar Suspension -16 00:00: 00 08-15 00:00 :00 No INJECT [...] MG oral Tablet 05-30 00:00: 00 Yes [id number] 500mg Take 1 tablet (500 mg total) by mouth 2 times daily Serina Sutherland methylPREDN ISolone (Medrol) 4 MG oral Tablet Therapy Pack 05-30 00:00: 00 08-15 00:00 :00 No [id number] 1{beatris} Take 1 beatris by mouth See Admin Instructio ns Use as directed. Serina singh Pseudoeph-B romphen-DM (Bromfed DM) 30-2-10 MG/5ML oral Syrup 05-30 00:00: 00 08-15 00:00 :00 No [id number] 10mL Q.25D Take 10 mL by mouth 4 times daily as needed Serina Loua samantha Albuterol HFA 108 (90 Base) MCG/ACT IN AERS 05-23 00:00: 00 Yes Serina Loua l Azithromyci n 250 MG oral Tablet 05-23 00:00: 00 07-04 00:00 :00 No Serina Sutherland Lansoprazol e (PREVACID OR) 2020-04 15:04: 13 Yes Take by mouth Serina Sutherland Methotrexat e 2.5 MG oral Tablet 2020-04 00:00: 00 09-20 00:00 :00 No [id number] 20mg Take 8 tablets (20 mg total) by mouth once a week Serina Sutherland Azithromyci n 250 MG oral Tablet 2020-04 00:00: 00 04-17 05:59 :00 No [id number] Take 2 tablets by mouth on day 1 then 1 tablet by mouth daily for 4 days thereafter . Serina Sutherland Methotrexat e 2.5 MG oral Tablet 2020-04 00:00: 00 Yes [id number] 10mg Take 4 tablets (10 mg total) by mouth once a week Serina Sutherland methylPREDN ISolone (Medrol) 4 MG oral Tablet Therapy Pack 2020-04 0- 00:00: 00 05-30 00:00 :00 No 1{beatris} Take 1 beatris by mouth See Admin Instructio ns Use as directed. Serina Sutherland Lansoprazol e (PREVACID OR) 2020-04 16:13: 29 Yes Take by mouth Serina Sutherland Medroxyprog esterone (DEPO-PROVE RA) [150 mg/mL] - Once Every 3 Months 2020-04 0-05 05:00: 00 01-27 04:59 :00 No [id number] 150mg Serina Sutherland Lansoprazol e (PREVACID OR) - 15:39: 54 Yes Take by mouth Serina Sutherland Medroxyprog esterone Acetate (DEPO-PROVE RA) 150 mg/mL - Once Every 3 Months -20 05:00: 00 11-11 04:59 :00 No [id number] 150mg Serina Sutherland Amitriptyli ne HCl 150 MG oral Tablet 11-16 00:00: 00 Yes [id number] 150mg Take 1 tablet (150 mg total) by mouth nightly Serina Sutherland Levothyroxi ne Sodium 75 MCG oral Tablet 11-16 00:00: 00 Yes [id number] 75ug Take 1 tablet (75 mcg total) by mouth daily Serina Sutherland Lisinopril 5 MG oral Tablet 11-16 00:00: 00 07-04 00:00 :00 No [id number] 5mg Take 1 tablet (5 mg total) by mouth daily Serina Sutherland Eletriptan Hydrobromid e (Relpax) 40 MG oral Tablet 09-30 00:00: 00 Yes [id number] 40mg Take 1 tablet (40 mg total) by mouth as needed for migraine may repeat in 2 hours if necessary Serina Sutherland Dextrometho eleazar-Gary ENesin (Mucinex DM) 30-600 MG oral Tablet 12 Hour Sustained Release 09-28 00:00: 00 Yes [id number] 1-2 tablets twice daily with a full glass of water as needed for cough and congestion Serina Sutherland Loperamide HCl (Imodium A-D) 2 MG oral Tablet 09-28 00:00: 00 01-26 00:00 :00 No [id number] Take as per package instructio n For diarrhea Serina singh Ondansetron (ZOFRAN) 8 MG oral tablet 09-28 00:00: 00 08-15 00:00 :00 No [id number] 8mg [id number] 3D Take 1 tablet (8 mg total) by mouth every 8 hours as needed for nausea Serina singh Azithromyci n 250 MG oral Tablet 09-28 00:00: 00 04-11 00:00 :00 No [id number] 2 tablets at once on day 1, then 1 tablet daily from day 2 to day 5 Serina Sutherland ibuprofen (MOTRIN) 600 mg tablet 01-11 00:00: 00 11-10 00:00 :00 No 600mg Take 1 tablet by mouth every 6 (six) hours as needed for Pain (scale 4-6). [facility] cetirizine (ZYRTEC) 10 mg tablet 01-09 19:18: 46 Yes 10mg Take 10 mg by mouth daily. [facility] AMITRIPTYLI NE HCL (AMITRIPTYL INE ORAL) 01-09 19:18: 26 Yes Take by mouth. [facility] LEVOTHYROXI NE SODIUM (SYNTHROID ORAL) 01-09 19:18: 26 Yes Take by mouth. [facility] LOSARTAN POTASSIUM (LOSARTAN ORAL) 01-09 19:18: 26 Yes Take by mouth. [facility] propranolol (INDERAL) 60 mg tablet 01-09 19:18: 26 Yes 60mg Take 60 mg by mouth daily. [facility] eletriptan (RELPAX) 40 mg tablet 01-09 19:18: 26 Yes 40mg Take 40 mg by mouth as needed. May repeat in 2 hours if necessary [facility] amitriptyli ne (ELAVIL) 100 mg tablet 01-09 19:18: 25 Yes 100mg Take 100 mg by mouth at bedtime. [facility] acetaminoph en-codeine (TYLENOL #3) 300-30 mg tablet 01-09 19:18: 25 Yes 1{tbl} Take 1 tablet by mouth as needed. [facility] Dexlansopra zole (DEXILANT) 60 mg capsule 01-09 19:18: 25 Yes 60mg Take 60 mg by mouth daily. [facility] levothyroxi ne (SYNTHROID) 50 mcg tablet 01-09 19:18: 25 Yes 50ug Take 50 mcg by mouth every morning. [facility] losartan (COZAAR) 50 mg tablet 01-09 19:18: 25 Yes 50mg Take 50 mg by mouth daily. [facility] albuterol (PROAIR HFA) 90 mcg/actuati on inhaler 01-09 19:18: 25 Yes 2{puff} Inhale 2 Puffs every 6 (six) hours as needed for Wheezing or Shortness of Breath. [facility] sulfamethox azole-trime thoprim (BACTRIM DS) 800-160 mg per tablet 01-02 00:00: 00 Yes 1{tbl} Take 1 tablet by mouth every 12 (twelve) hours. [facility] dicyclomine (BENTYL) 20 mg tablet 01-02 00:00: 00 Yes 20mg Take 1 tablet by mouth as needed for Abdominal pain (TO MAX OF QID). [facility] famotidine (PEPCID) 20 mg tablet 01-02 00:00: 00 Yes 20mg Take 1 tablet by mouth at bedtime. [facility] proMETHazin e (PHENERGAN) 25 mg tablet 01-02 00:00: 00 Yes 25mg Take 1 tablet by mouth every 6 (six) hours as needed for Nausea and Vomiting (N/V) (TO MAX OF QID). [facility] Immunizations Ordered Immunization Name Filled Immunization Name Date Status Comments Source Meningococcal Vaccine- Conjugate(Menactra) 2011-03-20 00:00:00 Vimal Sutherland Meningococcal Vaccine- Conjugate(Menactra) 2011-03-20 00:00:00 Vimal Sutherland Meningococcal Vaccine- Conjugate(Menactra) 2011-03-20 00:00:00 Completed Serina Sutherland Meningococcal Vaccine- Conjugate(Menactra) 2011-03-20 00:00:00 Completed Serina Sutherland Meningococcal Vaccine- Conjugate(Menactra) 2011-03-20 00:00:00 Completed Serina Sutherland Meningococcal Vaccine- Conjugate(Menactra) 2011-03-20 00:00:00 Completed Serina Sutherland Meningococcal Vaccine- Conjugate(Menactra) 2011-03-20 00:00:00 Completed Serina Abebe External Meningococcal Vaccine- Conjugate(Menactra) 2011-03-20 00:00:00 Completed [...] toxoid, preservative free, adsorbed 2002-02-18 00:00:00 Completed Serian Seybold Td (adult), 2 Lf tetanus toxoid, [...] Value Comments S ource Systolic blood pressure 2023-09-04 20:49:00 144 mm[Hg] Serina Seybo ld - External Diastolic blood pressure 2023-09-04 20:49:00 97 mm[Hg] Serina Seybo ld - External Heart rate 2023-09-04 20:48:00 81 /min Kelse y Seybold - External Body temperature 2023-09-04 20:48:00 36.67 Sonja Serina Seybold - External Respiratory rate 2023-09-04 20:48:00 16 /min Serina Seybold - External Body height 2023-09-04 20:48:00 167.6 cm Jihan ey Seybold - External Body weight 2023-09-04 20:48:00 125.646 kg Jihan ey Seybold - External BMI 2023-09-04 20:48:00 44.71 kg/m2 Jihan ey Seybold - External Oxygen saturation in Arterial blood by Pulse oximetry 2023-09-04 20:48:00 95 /min Serina Seybo ld - External Systolic blood pressure 2023-09-04 20:18:00 132 mm[Hg] Serina Seybo ld - External Diastolic blood pressure 2023-09-04 20:18:00 91 mm[Hg] Serina Seybo ld - External Heart rate 2023-09-04 20:18:00 101 /min Kelse y Seybold - External Respiratory rate 2023-09-04 20:18:00 16 /min Serina Seybold - External Body height 2023-09-04 20:18:00 167.6 cm Jihan ey Seybold - External Body weight 2023-09-04 20:18:00 125.646 kg Jihan ey Seybold - External BMI 2023-09-04 20:18:00 44.71 kg/m2 Jihan ey Seybold - External Systolic blood pressure 2023-06-12 17:19:00 144 mm[Hg] Serina Seybo ld - External Diastolic blood pressure 2023-06-12 17:19:00 93 mm[Hg] Serina Seybo ld - External Heart rate 2023-06-12 17:19:00 98 /min Kelse y Seybold - External Respiratory rate 2023-06-12 [...] External Heart rate 2023-05-07 20:11:00 91 /min Miahse y Seybold - External Body height 2023-05-07 [...] Seybold Respiratory rate 2021-06-21 20:22:00 16 /min Sreina Seybold Body height 2021-06-21 20:22:00 167.6 cm [...] blood pressure 2021-02-15 20:36:00 88 mm[Hg] Serina Irizarryo ld Heart rate 2021-02-15 20:36:00 88 /min Sugar y ybpatricia Body temperature 2021-02-15 20:36:00 36.39 Sonja Serina Perkinsybold Respiratory rate 2021-02-15 20:36:00 16 /min Serina Sutherland Body height 2021-02-15 20:36:00 167.6 cm Jihan ey ybpatricia Body weight 2021-02-15 20:36:00 117.935 kg Jihan ey ybold BMI 2021-02-15 20:36:00 41.97 kg/m2 Jihan Suthelrand Systolic blood pressure 2020-11-10 13:55:00 124 mm[Hg] [facility] Diastolic blood pressure 2020-11-10 13:55:00 85 mm[Hg] [facility] Heart rate 2020-11-10 13:55:00 92 /[facility] 2020-11-10 13:55:00 36.94 Sonja [facility] Respiratory rate 2020-11-10 13:55:00 18 /min [facility] Body height 2020-11-10 13:55:00 167.6 cm [facility] Body weight 2020-11-10 13:55:00 113.399 kg [facility] BMI 2020-11-10 13:55:00 40.35 kg/m2 [facility] Oxygen saturation in Arterial blood by Pulse oximetry 2020-11-10 13:55:00 100 /min [facility] Encounters Start Date/Time End Date/Time Encounter Type Admission Type Attending [facility] Care Facility Care Department Encounter ID Source 2024-03-18 16:00:00 2024-03-18 16:00:00 Outpatient NISREEN NDIAYE [id number] Serina Sutherland 2024-03-18 14:30:00 2024-03-18 14:30:00 Outpatient LISS ANAYA [id number] Serina Sutherland 2024-03-11 13:15:00 2024-03-11 13:15:00 Outpatient LISS ANAYA SERINA FERNANDES [id number] [facility] 2024-02-20 00:00:00 2024-02-20 00:00:00 Outpatient LISS ANAYA SERINA FERNANDES [id number] Serina Perkinspatricia 2024-02-13 11:30:00 2024-02-13 11:30:00 Outpatient MARILYN GUERRA SERINA FERNANDES [id number] [facility] 2024-02-01 13:45:00 2024-02-01 13:45:00 Outpatient JAGJIT JOYCE SERINA FERNANDES [id number] [facility] 2024-01-22 13:00:00 2024-01-22 13:00:00 Outpatient LISS ANAYA SERINA FERNANDES [id number] [facility] 2024-01-22 10:30:00 2024-01-22 10:30:00 Outpatient MARI [facility]ILYN [facility] [id number] [facility] 2024-01-11 00:00:00 2024-01-11 00:00:00 Outpatient SUNNI AHMADI [id number] [facility] 2024-01-08 14:15:00 2024-01-08 14:15:00 Outpatient SAUL LISS FERNANDES [id number] [facility] 2023-12-30 00:00:00 2023-12-30 00:00:00 Outpatient SUNNI AHMADI [id number] [facility] 2023-12-25 00:00:00 2023-12-25 00:00:00 [facility] [id number] [facility]:00 2023-12-20 00:00:00 [facility] SUN[facility]AD[facility] [id number] [facility] 2023-12-11 15:45:00 2023-12-11 15:45:00 Out[facility] [id number] [facility]23-12-05 09:00:00 2023-12-05 09:00:00 Outpatient YEHUDA LOZADASEY [id number] [facility] 2023-11-28 00:00:00 2023-11-28 00:00:00 Outpatient YEHUDA LOZADA [facility] [id number] [facility]23-[facility]-24 00:00:00 2023-11-24 00:00:00 Outpatient YEHUDA LOZADA [facility] [id number] [facility]23-[facility]-18 00:00:00 2023-11-18 00:00:00 Outpatient BRENDA KENNEY [facility] [id number] [facility] 2023-10-31 15:30:00 2023-10-31 15:30:00 Outpatient MARIA DEL CARMEN JAGJIT SERINA FERNANDES [id number] [facility] 2023-10-16 16:30:00 2023-10-16 16:30:00 Outpatient PAULA FREDERICK [id number] [facility] 2023-10-12 00:00:00 2023-10-12 00:00:00 Outpatient GABY JERRYRichy FERNANDES [id number] [facility] 2023-10-12 00:00:00 2023-10-12 00:00:00 Outpatient SUNNI AHMADI [id number] [facility] [facility] [facility]-10-01 15:30:00 2023-10-01 15:30:00 Outpatient SARA VILLA [id number] [facility] 2023-09-25 15:50:00 2023-09-25 15:50:00 Outpatient LAB90 SERINA [facility]NAND[facility] [id number] [facility]23-[facility]-21 00:00:00 2023-09-21 00:00:00 Outpatient [facility]NAND[facility] [id number] [facility] 2023-09-05 15:30:00 2023-09-05 15:30:00 Outpatient MAYNOR BATISTA [id number] [facility] 2023-09-05 00:00:00 2023-09-05 00:00:00 Outpatient LISS ANAYA [id number] [facility] Suther[facility] 2023-09-05 00:00:00 2023-09-05 00:00:00 Outpatient LISS ANAYA SERINA FERNANDES [id number] [facility] 2023-09-05 00:00:00 2023-09-05 00:00:00 Outpatient SERINA FERNANDES [id number] Serina Koko 2023-09-04 16:30:00 2023-09-04 16:30:00 Outpatient MARQUEZ SERINA FERNANDES [id number] [facility] 2023-09-04 16:00:00 2023-09-04 16:00:00 Outpatient MARY CARMENLUDWIN PIRES SERINA FERNANDES [id number] [facility] 2023-09-04 15:15:00 2023-09-04 15:15:00 Outpatient LISS ANAYA SERINA FERNANDES [id number] [facility] Sutherland 2023-09-03 15:30:00 2023-09-03 15:30:00 Outpatient TAMIKO PEREZ [id number] [facility] 2023-09-03 11:30:00 2023-09-03 11:30:00 Outpatient COURTNEY VIPINHOANG FERNANDES [id number] [facility] 2023-08-25 00:00:00 2023-08-25 00:00:00 Outpatient SUNNI AHMADI [id number] [facility] 2023-08-21 15:00:00 2023-08-21 15:00:00 Outpatient JAGJIT JOYCE [id number] [facility] 2023-08-15 00:00:00 2023-08-15 00:00:00 Outpatient SUNNI AHMADI [id number] Serina Seybold 2023-08-15 00:00:00 2023-08-15 00:00:00 Outpatient SUNNI AHMADI [id number] Serina Seybold 2023-08-14 16:00:00 2023-08-14 16:00:00 Outpatient ESTEBAN GAMBLE [id number] [facility]ina Seybold 2023-08-14 11:15:00 2023-08-14 11:15:00 Outpatient LISS ANAYA SERINA FERNANDES [id number] [facility] 2023-08-07 16:30:00 2023-08-07 16:30:00 Outpatient PAULA FREDERICK SEIRNA FERNANDES [id number] [facility] 2023-08-03 15:00:00 2023-08-03 15:00:00 Outpatient SARA VILLA SERINA FERNANDES [id number] [facility] 2023-08-01 00:00:00 2023-08-01 00:00:00 Outpatient SUNNI AHMADI [id number] [facility] 2023-07-27 11:00:00 2023-07-27 11:00:00 Outpatient JAGJIT JOYCE [id number] [facility] 2023-07-16 10:30:00 2023-07-16 10:30:00 Outpatient MAVIS ESTEBANJorge FERNANDES [id number] [facility] 2023-07-01 00:00:00 2023-07-01 00:00:00 Outpatient LISS ANAYA SERINA FERNANDES [id number] [facility] 2023-06-12 11:45:00 2023-06-12 11:45:00 Outpatient MARQUEZ FERNANDES [id number] [facility] 2023-06-12 11:15:00 2023-06-12 11:15:00 Outpatient LISS ANAYA SERINA FERNANDES [id number] [facility] 2023-06-05 10:30:00 2023-06-05 10:30:00 Outpatient MAVIS ESTEBANJorge FERNANDES [id number] [facility] 2023-05-30 11:15:00 2023-05-30 11:15:00 Outpatient JAGJIT JOYCE [id number] [facility] 2023-05-29 10:45:00 2023-05-29 10:45:00 Outpatient LISS ANAYA SERINA [facility]ERNANDES [id number] [facility] 2023-05-15 11:30:00 2023-05-15 11:30:00 [facility]IP [id number] [facility] 11:30:00 2023-05-15 11:30:00 Outpatient ESTEBAN GAMBLE SERINA FERNANDES [id number] [facility] 2023-05-08 00:00:00 2023-05-08 00:00:00 Outpatient JAGJIT JOYCE SERINA FERNANDES [id number] [facility] 2023-05-07 14:30:00 2023-05-07 14:30:00 Outpatient HOJAGJIT SERINA FERNANDES [id number] [facility] 2023-05-07 00:00:00 2023-05-07 00:00:00 Outpatient JAGJIT JOYCE [facility] [id number] [facility] 00:00:00 2023-05-07 00:00:00 Outpatient GABYJERRY [id number] [facility] 2023-05-01 13:30:00 2023-05-01 13:30:00 Outpatient LISS ANAYA [id number] [facility] 2023-04-20 00:00:00 2023-04-20 00:00:00 Outpatient JERRY GRIFFIN [id number] [facility] 2023-04-11 00:00:00 2023-04-11 00:00:00 Outpatient LISS ANAYA [id number] [facility] 2023-04-11 00:00:00 2023-04-11 00:00:00 Outpatient LISS ANAYA [id number] [facility] 2023-02-28 00:00:00 2023-02-28 00:00:00 Outpatient GC_GCBZW_Ka diyala_S [facility]IV [facility] [id number] [facility] 2023-02-23 14:45:00 2023-02-23 14:45:00 Outpatient YEHUDA LOZADA [id number] [facility] 2023-02-18 00:00:00 2023-02-18 00:00:00 Outpatient LISS ANAYA [id number] [facility] K[facility] 2023-02-15 11:00:00 2023-02-15 11:00:00 Outpatient MARILYN GUERRA SERINA FERNANDES [id number] [facility] 2023-02-07 09:20:00 2023-02-07 09:20:00 Outpatient DORETHA JORGENSEN SERINA FERNANDES [id number] [facility] patricia 2023-02-02 19:50:00 2023-02-02 22:30:00 Emergency EM Christy Calixto [facility] [id number] [facility] 2023-01-26 13:15:00 2023-01-26 13:15:00 Outpatient LISS ANAYA [id number] [facility] patricia 2023-01-26 12:30:00 2023-01-26 12:30:00 Outpatient LISS ANAYA [id number] [facility] 2023-01-26 08:50:00 2023-01-26 08:50:00 Outpatient EWA SERINA FERNANDES [id number] [facility] 2023-01-26 08:00:00 2023-01-26 08:00:00 Outpatient YEHUDA LOZADA [id number] [facility] 2023-01-25 00:00:00 2023-01-25 00:00:00 Outpatient LISS ANAYA [id number] [facility] patricia 2023-01-24 15:45:00 2023-01-24 15:45:00 Outpatient LISS ANAYA [id number] [facility] patricia 2023-01-24 00:00:00 2023-01-24 00:00:00 Outpatient LISS ANAYA [id number] [facility] 2023-01-19 00:00:00 2023-01-19 00:00:00 Outpatient LISS ANAYA [id number] [facility]rederick 2022-12-19 14:15:00 2022-12-19 14:15:00 Outpatient LISS ANAYASEY [id number] [facility] 2022-11-07 13:45:00 2022-11-07 13:45:00 Outpatient LISS ANAYA SERINA FERNANDES [id number] [facility] 2022-10-12 18:45:00 2022-10-12 18:45:00 Outpatient BRENDA KENNEY SERINA FERNANDES [id number] [facility] 2022-10-11 00:00:00 2022-10-11 00:00:00 Outpatient JAGJIT JOYCE SERINA FERNANDES [id number] [facility] 2022-10-07 00:00:00 2022-10-07 00:00:00 Outpatient LISS ANAYA [facility] [id number] [facility] 2022-10-02 14:15:00 2022-10-02 14:15:00 Outpatient LABBenny FERNANDES [id number] [facility] 2022-10-02 13:15:00 2022-10-02 13:15:00 Outpatient SERINA FERNANDES [id number] [facility] 2022-09-22 00:00:00 2022-09-22 00:00:00 Outpatient MARIA DEL CARMEN JAGJIT SERINA FERNANDES [id number] [facility] 2022 11:15:00 2022 11:15:00 Outpatient SUNNI AHMADI [id number] [facility] 11:05:00 2022 11:05:00 Outpatient LABImani FERNANDES [id number] Serina Seybold 2022 10:30:00 2022 10:30:00 Outpatient JAGJIT JOYCE [id number] [facility] Seybold 2022 08:00:00 2022 08:00:00 Outpatient SUNNI AHMADI [id number] [facility] Seybold 2022-09-15 08:30:00 2022-09-15 08:30:00 Outpatient FERNANDORAHUL [id number] [facility] Seybold 2022-08-15 13:45:00 2022-08-15 13:45:00 Outpatient AHMADISUNNI SERINA FERNANDES [id number] [facility]ina Koko 2022-08-14 14:00:00 2022-08-14 14:00:00 Outpatient RYAN SLADE SERINA FERNANDES [id number] [facility] patricia 2022-08-12 00:00:00 2022-08-12 00:00:00 Outpatient HARVEY WATERMAN [id number] [facility] 2022-08-09 00:00:00 2022-08-09 00:00:00 Outpatient LISS ANAYA [id number] [facility] 2022-08-09 00:00:00 2022-08-09 00:00:00 [facility]ATER[facility] [id number] [facility]:00:00 2022-08-09 00:00:00 Outpatient HARVEY WATERMAN [id number] [facility] 2022-08-09 00:00:00 2022-08-09 00:00:00 Outpatient HARVEY WATERMAN [id number] [facility] 2022-08-09 00:00:00 2022-08-09 00:00:00 Outpatient LISS ANAYA [id number] [facility] 2022-08-09 00:00:00 2022-08-09 00:00:00 Outpatient LISS ANAYA [id number] [facility] 2022-08-03 00:00:00 2022-08-03 00:00:00 Outpatient LISS ANAYA [id number] [facility] 2022-08-01 15:15:00 2022-08-01 15:15:00 Outpatient MARQUEZ FERNANDES [id number] [facility] 2022-08-01 14:45:00 2022-08-01 14:45:00 Outpatient LISS ANAYA [id number] [facility] 2022-07-01 00:00:00 2022-07-01 00:00:00 Outpatient LISS ANAYA SERINA [id number] [facility] 2022-05-03 00:00:00 2022-05-03 00:00:00 Outpatient LISS ANAYA SERINA [id number] [facility] 2022-05-03 00:00:00 2022-05-03 00:00:00 Outpatient LISS ANAYA SERINA [id number] [facility] 2022-05-02 14:55:00 2022-05-02 14:55:00 Outpatient LAB SERINA FERNANDES [id number] [facility] Koko 2022-05-02 14:15:00 2022-05-02 14:15:00 Outpatient LISS ANAYA SERINA FERNANDES [id number] [facility] 2022-03-28 13:00:00 2022-03-28 13:00:00 Outpatient LISS ANAYA SERINA SERINA [id number] [facility] 2022-01-04 00:00:00 2022-01-04 00:00:00 Outpatient LISS ANAYA SERINA FERNANDES [id number] [facility] 2021-12-27 14:15:00 2021-12-27 14:15:00 Outpatient LAB SERINA FERNANDES [id number] [facility] K[facility] 2021-12-27 13:45:00 2021-12-27 14:00:00 Office Visit Liss Anaya Ana Paula MEJIAS 1.2.840.114 [id number] [id number] [facility]ina Koko 2021-09-30 15:30:00 2021-09-30 15:30:00 Outpatient HARVEY WATERMAN [id number] [facility] 2021-09-21 00:00:00 2021-09-21 00:00:00 Outpatient SAUL LISS SERINA FERNANDES [id number] [facility] 2021-09-20 15:00:00 2021-09-20 15:00:00 Outpatient LAB47 SERINA FERNANDES [id number] [facility] 2021-09-20 14:30:00 2021-09-20 14:45:00 Office Visit Liss Anaya DENNYLUCIANA 1.2.840.114 [id number] [id number] [id number] [facility] Sutherland 2021-08-16 16:45:00 2021-08-16 16:45:00 Outpatient LISS ANAYA SERINA FERNANDES [id number] [facility] 2021-08-10 14:45:00 2021-08-10 14:45:00 Outpatient HARVEY WATERMAN [id number] [facility] Koko 2021-08-02 14:30:00 2021-08-02 14:30:00 Outpatient HARVEY WATERMAN [id number] [facility] 2021-07-04 14:00:00 2021-07-04 14:30:00 Office Visit Harvey Waterman 1.2.840.114 350.1.13.13 [id number] [id number] Seirna Perkinspatricia 2021-06-21 14:30:00 2021-06-21 14:45:00 Office Visit Liss Anaya DENNYLUCIANA 1.2.840.114 350.1.13.13 [id number] [id number] [facility] 2021-06-07 08:30:00 2021-06-07 08:30:00 Outpatient HARVEY WATERMAN [id number] [facility] 2021-05-30 14:00:00 2021-05-30 14:18:57 Telemedici ne Harvey Waterman 1.2.840.114 350.1.13.13 [id number] [id number] [facility] 2021-05-24 11:15:00 2021-05-24 11:15:00 Outpatient HARVEY WATERMANSEY [id number] [facility]ina Sutherland 2021-04-19 15:30:00 2021-04-19 15:30:00 Outpatient LAB47 SERINA SERINA [id number] [facility]ina Sutherland 2021-04-19 15:00:00 2021-04-19 15:15:00 Office Visit Andrea Anayaslim MEJIAS 1.2.840.114 350.1.13.13 [id number] [id number] Serina Sutherland 2021-04-11 13:30:00 2021-04-11 13:30:00 Telemedici ny GUEVARA HARVEYLINN Uribe 1.2.840.114 350.1.13.13 1.2.7.2.686 [id number] Serina Sutherland 2021-03-15 15:02:33 2021-03-15 15:11:41 Telemedici ne Liss Anaya 1.2.840.114 350.1.13.13 1.2.7.2.686 [id number] Serina Sutherland 2021-02-19 00:00:00 2021-02-19 00:00:00 Outpatient LISS ANAYA SERINA FERNANDES [id number] [facility] S[facility] 2021-02-18 00:00:00 2021-02-18 00:00:00 Outpatient LISS ANAYA SERINA FERNANDES [id number] [facility] S[facility] 2021-02-15 15:28:17 2021-02-15 15:58:17 Office Visit Andrea Anayaslim MEJIAS 1.2.840.114 350.1.13.13 1.2.7.2.686 [id number] [facility]ina Sutherland 2021-02-15 15:50:00 2021-02-15 15:50:00 Outpatient LAB SERINA FERNANDES [id number] [facility] Sutherland 2021-02-09 14:29:06 2021-02-09 14:47:11 Telemedici ne Harvey Waterman [place] .2.840.114 350.1.13.13 1.2.7.2.686 [id number] Serina Koko 2021-02-08 15:00:00 2021-02-08 15:00:00 Outpatient INJDARYL SERINA FERNANDES [id number] Serina Koko 2021-01-11 15:15:00 2021-01-11 15:15:00 Outpatient LISS ANAYA SERINA FERNANDES [id number] Serina Koko 2020-12-23 17:00:00 2020-12-23 17:00:00 Outpatient [id number]-[id number] SERINA FERNANDES [id number] Serina Koko 2020-12-23 15:30:00 2020-12-23 15:30:00 Outpatient GIANLUCA GORMAN [id number] [facility]ina Koko 2020-11-16 16:30:00 2020-11-16 16:30:00 Outpatient INJ, DENNYLUCIANA SERINA FERNANDES [id number] Serinamary Sutherland 2020-11-10 10:00:00 2020-11-10 10:00:00 Outpatient R [facility] [id number] [facility] 2020-11-10 08:14:07 2020-11-10 09:20:05 Urgent Care Provider, [facility] .2.840.114 350.1.13.10 4.2.7.2.686 [id number] [facility] 2020-11-10 00:00:00 2020-11-10 00:00:00 Outpatient HARVEY WATERMAN [id number] [facility]ina Sutherland 2020-11-04 00:00:00 2020-11-04 00:00:00 Outpatient HARVEY WATERMAN [id number] [facility] Results Test Description Test Time Test Comments Results Resul t Comments Source - CT NECK W/CONTRAST 2023-02-02 [facility] 1985 Sex: F Name: ADINA WATKINS [facility] : 1985 Age/S: 37 / F [id number] [address] Unit #: [id number] Loc: Danya Mejias [address] Phys: Christy Calixto MD Acct: [id number] Dis Date: Status: REG ER PHONE #: [phone] Exam Date: 02/02/20232105 FAX #: Reason: mass EXAMS: CPT: [id number] CT NECK W/CONTRAST 71960 EXAM: - CT NECK W/CONTRAST HISTORY: mass, [...] or adenopathy seen. Dictation/location code: H-100 at 2150 Reported and signed by: KYLEE ZHONG M.D. PAGE 1 Signed Report (CONTINUED) Name: ADINA WATKINS : 1985 Age/S: 37 / F [id number] [address] Unit #: [id number] Loc: Danya Mejias [address] Phys: Christy Calixto MD Acct: [id number] Dis Date: Status: REG ER PHONE #: [phone] Exam Date: 02/02/20232105 FAX #: Reason: mass EXAMS: CPT: [id number] CT NECK W/CONTRAST 40177 (Continued) CC: Christy Calixto MD; Martir Rodriguez NP Technologist:Galindo Ruiz, RT(R); Oleksandr CTDI: DLP: Trnscb Date/Time: 02/02/2023 (2149) [id number] Orig Print D/T: S: 02/02/2023 (2152) PAGE 2 Signed Report BASIC METABOLIC [id number] 20:54:00* Test Item Value Reference Range Interpretation [...] CA) 8.2 MG/DL 8.5-10.1 L CBC W/AUTO [id number] 20:33:00* Test Item Value Reference Range Interpretation [...] DIFF/SCN CRITERIA Notes Date/Time Note Provider Source 2023-09-04 15:47:46 Chief Complaint Patient presents with OTHER Referral for ENT No other voiced concerns Rajendra Cornejo MA, II [facility] 2023-06-12 11:21:29 Chief Complaint Patient presents with Follow-up Alba Conner LVN [facility] 2023-05-07 14:11:41 Adina Watkins is here today for Chief Complaint Patient presents with Uterine Prolapse Patient's last menstrual period was 04/23/2023. Control Method: OCP's Additional concerns patient would like to address with provider: n/a [facility] 2023-02-02 20:16:00 [facility] ([facility]) EMERGENCY PROVIDER REPORT REPORT#:[id number] REPORT STATUS: Signed DATE:02/02/23 TIME:2015 PATIENT: ADINA WATKINS UNIT #: [id number] ROOM/BED: : 85 AGE: 37 SEX: F PCP PHYS: Lona Khanna MD SERVICE AUTHOR: Martir Rodriguez TIE MILL OPERATOR * ALL edits or amendments must be made on the electronic/computer document * Martir Rodriguez 02/02/23 2016: HPI-Sore Throat Free Text HPI Notes Free Text HPI Notes Patient presents to the ED stating that she has a lump in the back of her throat. She noticed that there a month ago. Lump on the left side. Sometimes it swells up and resolved. She stated she went to the urgent care 2 days ago. Tested negative for strep, COVID, flu. Concerned that it may be a mass. Denies fever, chills, body aches, difficulty swallowing, respiratory distress, cough. Reports that she is a 20-year smoker. General Confirmed Patient Yes Initial Greet Date/Time 02/02/231953 Presentation Chief Complaint Sore throat Review of Systems ROS Statements All systems rev neg except as marked. Focused Review of Systems Ears/Nose/Throat Reports: Sore throat. Past Medical History - Adult Stated Complaint LEFT SIDE LUMP ON THROAT Allergies Coded Allergies: No Known Allergies (02/02/23) Calculated Suicide Risk (nurs) No risk Past Medical History: Reports: GERD/gastritis, Hypertension, Thyroid disorder. Past Surgical History: Reports: Appendectomy, Tonsillectomy. Smoking status for patients 13 years old or older: Current every day smoker Physical Exam Vital Signs Vital Signs First Documented: Result Date Time Pulse Ox 99 [...] Review of Vital Signs Reviewed Basic Physical Exam Basic PE HEAD: Atraumatic/NC, EYES: PERRL, conj clear, RESP: No resp distress, CV: Reg rate rhythm, ABD: Soft/non-tender, SKIN: No rashes, warm/dry, NEURO: alert oriented, NEURO: gross movement NL, PSYCH: NL thought content Focused PE Ears/Nose/Throat Ears/Nose/Throat Atraumatic, Airway patent, Tympanic membs NL, Ext aud canal NL, Mastoid area NL MS Neck Neck Atraumatic, Non-tender Interpretation Diagnostics Lab Results Interpretation Results Laboratory Tests 02/02/232023: [Embedded Image Not Available] Laboratory Tests: 02/03 2024 Chemistry Serum , Qual [...] % (Auto) (20.5 - 51.1 %) 35.3 Hitchcock % (Auto) (1.7 - 9.3 %) 4.5 Eos % (Auto) (0.0 - 6.0 %) 2.9 Baso % (Auto) (0.0 - 2.0 %) 0.6 Neut # (Auto) (1.8 - 7.6 K/mm3) 4.0 Lymph # (Auto) (0.6 - 3.2 K/mm3) 2.5 Hitchcock # (Auto) (0.3 - 1.1 K/mm3) 0.3 Eos # (Auto) (0.0 - 0.4 K/mm3) 0.2 Baso # (Auto) (0.0 - 0.1 K/mm3) 0.0 Abs Immat Gran (auto) (0.00 - 0.03 x10 3/uL) 0.03 Add Manual Diff (CRITERIA DIFF/SCN) NO Immature Gran % (0.0 - 5.0 %) 0.4 Nucleated RBC % (0.0 - 1.0 /100WBC%) 0.0 Recent Impressions: CAT SCAN - CT NECK W/CONTRAST 02/02 2103 Report Impression - Status: SIGNED Entered: 02/02/20232152 IMPRESSION: No neck masses or adenopathy seen. Dictation/location code: H-100 Impression By: Karolina ZHONG M.D. Lab Imaging Statement Laboratory radiographic studies reviewed and considered in the medical decision-making. Point of Care Testing Pulse Oximetry Pulse Ox % 99 On: Room air Interpretation Interpreted by me Re-Evaluation [facility] ED Course Time 2228 Patient Course Stable Medication(s) Ordered Medication(s) Ordered: Diagnostic Agents Sig/Piper Start time Last Medication Dose Route Stop Time Status Admin Iopamidol 0 .STK-MED ONE 02/02 2041 DC 02/02 IV 2119 Electrolytic, Caloric, And Jac Sig/Piper Start time Last Medication Dose Route Stop Time Status Admin Sodium Chloride 50 ML .STK-MED ONE 02/02 2123 DC 02/02 IV 02/02 Safety Concerns Patient is safe Differential Diagnosis Differential Diagnosis Cervical lymphadenitis, Epiglottitis, Herpangina, Herpetic stomatitis, Pharyngitis, acute, Pharyngitis, viral, Stomatitis, Tonsillitis, acute, Uvulitis Findings/Social Determinants Presentation Acute Severity Evaluation Non life-threatening Diagnosis Appears Evident Relevant Comorbidities Immune disorder Patient Discharge Departure Vital Signs/Condition Vital Signs First Documented: Result Date Time Pulse Ox 99 [...] entry have been reviewed. Condition Stable Clinical Impression Clinical Impression Primary Impression: Lesion of throat Disposition Decision Discharge )( Discharged to Home Yes )( Time 2226 )( Date 02/02/23 Discharge/Care Plan Counseled Regarding Diagnosis, Lab results, Imaging studies, Need for follow-up, When to return to ED Patient Instructions Acute Pharyngitis Additional Instructions CT result shows nasal polyps. Patient aware results and reports that she does have a history of nasal polyps. Follow-up with ENT in 2 to 5 days. Call for appointment Discharge Note I have spoken with the patient and/or caregivers. I have explained the patient's condition, diagnoses and treatment plan based on the information available to me at this time. I have answered the patient's and/or caregiver's questions and addressed any concerns. The patient and/or caregivers have as good an understanding of the patient's diagnosis, condition and treatment plan as can be expected at this point. The vital signs have been stable. The patient's condition is stable and appropriate for discharge from the emergency department. The patient will pursue further outpatient evaluation with the primary care physician or other designated or consulting physician as outlined in the discharge instructions. The patient and/or caregivers are agreeable to this plan of care and follow-up instructions have been explained in detail. The patient and/or caregivers have received these instructions in written format and have expressed an understanding of the discharge instructions. The patient and/or caregivers are aware that any significant change in condition or worsening of symptoms should prompt an immediate return to this or the closest emergency department or a call to 911. Quality Measures Preg Test for Women w/Abd Pain Female age 14-50, Any preg test ordered Christy Calixto 02/07/23 0351: Re-Evaluation MDM Free Text MDM Notes Free Text MDM Notes 37-year-old presents with a lump on the side of her neck has been present for greater than 1 month. Laboratory work obtained in addition to CT imaging. Patient Discharge Departure Discharge/Care Plan Referrals Provider Referral: Johan Smith MD Address: [address] [place] [address] Supervising Physician Note MidLv/Doc Saw Pt 2 The PA/TIE MILL OPERATOR has seen the patient and I have performed this visit along with the involvement of the PA/TIE MILL OPERATOR. I agree with the PA/greenskeeper findings and plan. I have performed all aspects of MDM as documented including: evaluation of the patient/ patient's condition(s), review and analysis of available data, and determination of risk of patient management decisions. at 0024 at 0351 RPT #: [id number] END OF REPORT HCAPM
--- NOTE | 2024-02-22 10:39 | EDPHYS ---
Physician Documentation [facility] Name: Adina Watkins Age: 38 yrs Sex: Female : 1985 Arrival Date: 02/22/2024 Time: 10:01 Bed 16 Private MD: ED Physician Yoon Cade HPI: 02/21 10:33 This 38 yrs old Female presents to ER via Ambulatory with complaints of Sinus sd2 Congestion, Sore Throat, Ear Pain. 10:33 38 yo F presents with CC of sinus congestion, sore throat and left ear pain for the sd2 past 3-4 days. No associated fever. Taking Chloraseptic with some improvement. Reports cough irritates her throat. Reports feels the same as when her ears swelled shut a few months ago and she was given abx to improve it. . 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 - Infectious Disease History:: Denies. - Social history:: Smoking status: Patient reports the use of cigarette tobacco products, denies chronic smoking, but will smoke occasionally, Reported history of juuling and/or vaping. ROS: 10:33 Constitutional: Negative for fever, chills, and weight loss, Eyes: Negative for injury, sd2 pain, redness, and discharge, 10:33 Neck: Negative for injury, pain, and swelling, Cardiovascular: Negative for chest pain, palpitations, and edema, 10:33 ENT: Positive for ear pain, sinus congestion, sinus pain, sore throat, Negative for 10:33 Respiratory: Positive for cough, Negative for shortness of breath, wheezing, Exam: 10:33 Constitutional: This is a well developed, well nourished patient who is awake, alert, sd2 and in no acute distress. Head/Face: Normocephalic, atraumatic. Eyes: EOMI, normal conjunctiva bilaterally ENT: Nares patent. No nasal discharge, no septal abnormalities noted. Sinus congestion noted. Tympanic membranes are normal on the left, purulence noted behind R TM and external auditory canals are clear. Oropharynx with mild redness, no swelling, or masses, exudates, or evidence of obstruction, uvula midline. Mucous membranes moist. Neck: Trachea midline, no thyromegaly or masses palpated, and no cervical lymphadenopathy. Supple, full range of motion without nuchal rigidity, or vertebral point tenderness. No Meningismus. Skin: Warm, dry with normal turgor. Normal color with no rashes, no lesions, and no evidence of cellulitis. Psych: Awake, alert, with orientation to person, place and time. Behavior, mood, and affect are within normal limits. Vital Signs: 10:16 BP 145 / 99; Pulse 103; Resp 19 S; Temp 99.2(O); Pulse Ox 93% on R/A; Weight 124.74 kg kc6 (R); Height 5 ft. 6 in. (R); Pain 3/10; 12:16 BP 134 / 89; Pulse 101; Resp 20; Temp 99.2; Pulse Ox 94% on R/A; MAP 103 mmHg; tm6 10:16 Body Mass Index 44.39 (124.74 kg, 167.64 cm) kc6 10:16 Pain Scale: Adult kc6 MDM: 10:23 Medical Screening Exam initiated sd2 10:33 Differential Diagnosis: Upper Respiratory Infection Sinusitis Pharyngitis Otitis Media sd2 Viral Syndrome Other among others. Data reviewed: vital signs, nurses notes. Care significantly affected by the following chronic conditions: Hypertension. Counseling: I had a detailed discussion with the patient and/or guardian regarding the historical points, exam findings, and any diagnostic results supporting the discharge/admit diagnosis, the need for outpatient follow up, to return to the emergency department if symptoms worsen or persist or if there are any questions or concerns that arise at home. ED course: Pt advised of exam findings. Will place on abx for both ear infection and treatment of sinuses. She is comfortable with plan for dc and outpatient follow up and verbalizes understanding of dc plan and strict return precautions. . Administered Medications: 12:04 Drug: Dexamethasone PO 10 mg PO once Route: PO; tm6 12:16 Follow up: Response: Medication administered at discharge. tm6 Disposition Summary: 02/22/24 10:38 Discharge Ordered Problem: new sd2 Symptoms: are unchanged sd2 Condition: Stable sd2 Diagnosis - Acute suppurative otitis media without spontaneous rupture of ear drum, right ear sd2 - Sinus congestion sd2 - Sore throat sd2 Followup: sd2 - With: Private Physician - When: 2 - 3 days - Reason: Recheck today's complaints, Continuance of care, Re-evaluation by your physician Discharge Instructions: - Discharge Summary Sheet sd2 - Otitis Media, Adult sd2 - How to Perform a Sinus Rinse sd2 Forms: - Work release form aa5 - Medication Reconciliation Form sd2 - Antibiotic Education sd2 - Prescription Opioid Use sd2 - Patient Portal Instructions sd2 - Leadership Thank You Letter sd2 Prescriptions: - cefdinir 300 mg Oral capsule - take 1 capsule ORAL route 2 times per day for 10 days; 20 capsule; Refills: 0, sd2 Product Selection Permitted - Guaifenesin AC 10-100 mg/5 mL Oral liquid - take 10 milliliters ORAL route every 6 hours As needed; 240 milliliter; sd2 Refills: 0, Product Selection Permitted Signatures: Angela Riggins, RN RN aa5 Yoon Cade MD MD sd2 Kinjal Linares RN RN kc6 Antonietta King RN RN tm6
--- NOTE | 2024-02-22 10:39 | ER ---
Nurse's Notes [facility] Name: Adina Watkins Age: 38 yrs Sex: Female : 1985 Arrival Date: 02/22/2024 Time: 10:01 Bed 16 Private MD: Diagnosis: Acute suppurative otitis media without spontaneous rupture of ear drum, right ear;Sinus congestion;Sore throat Presentation: 02/21 10:16 Chief complaint: Patient states: sinus congestion, L ear pain and sore throat that kc6 started earlier this week, cough that started yesterday. states she feels like her nostrils and throat are closing up. Coronavirus screen: At this time, the client does not indicate any symptoms associated with coronavirus-19. Ebola Screen: No symptoms or risks identified at this time. Initial Sepsis Screen: Does the patient meet any 2 criteria? HR > 90 bpm. Does the patient have a suspected source of infection? No. Patient's initial sepsis screen is negative. Risk Assessment: Do you want to hurt yourself or someone else? Patient reports no desire to harm self or others. Onset of symptoms was February 22, 2024. 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 - Infectious Disease History:: Denies. - Social history:: Smoking status: Patient reports the use of cigarette tobacco products, denies chronic smoking, but will smoke occasionally, Reported history of juuling and/or vaping. Screenin:15 [facility] ED Fall Risk Assessment (Adult) History of falling in the last 3 months, tm6 including since admission No falls in past 3 months (0 pts) Confusion or Disorientation No (0 pts) Intoxicated or Sedated No (0 pts) Impaired Gait No (0 pts) Mobility Assist Device Used No (0 pt) Altered Elimination No (0 pt) Score/Fall Risk Level 0 - 2 = Low Risk Oriented to surroundings, Maintained a safe environment, Educated pt \\T\\ family on fall prevention, incl call for assistance when getting out of bed. Abuse screen: Denies threats or abuse. Denies injuries from another. Nutritional screening: No deficits noted. Tuberculosis screening: No symptoms or risk factors identified. Assessment: 10:15 General: Appears in no apparent distress. Behavior is calm. Pain: Complains of pain in tm6 right ear and left ear, throat. Neuro: Level of Consciousness is awake, alert, obeys commands, Oriented to person, place, time, situation. Cardiovascular: Patient's skin is warm and dry. Respiratory: Reports labored breathing Airway is patent Respiratory effort is even, unlabored, Respiratory pattern is regular, symmetrical, Breath sounds are clear. GI: Abdomen is round. : No signs and/or symptoms were reported regarding the genitourinary system. EENT: Throat is clear Reports pain in left ear and right ear, throat. Derm: No signs and/or symptoms reported regarding the dermatologic system. Musculoskeletal: No signs and/or symptoms reported regarding the musculoskeletal system. 11:00 Reassessment: attempted to discharge patient. Patient stated she feels like she is tm6 breathing through a straw and would like for MD to listen to her lungs. MD notified. MD came immediately to bedside and evaluated patient. MD prescribed additional medication. 11:30 Reassessment: attempted to discharge patient a second time, with additional tm6 prescription. Patient requested to see a different provider. tool analyst and MD notified. 11:48 Reassessment: To bedside to speak to patient, pt c/o sore throat, cough, ear pain, aa5 sinus pain, pt states "I feel like I got better care last time when I was just here for my ear pain a few weeks ago, right now I feel it's hard to breathe because of my throat and my sinus feels like everything is swollen", MD was notified and states she will order Decadron PO, pt was notified and agrees with POC to be discharged home after Decadron PO. . 11:48 Reassessment: Patient is alert, oriented x 3, equal unlabored respirations, skin aa5 warm/dry/pink. 12:04 Reassessment: attempted to discharge patient. Patient crying, stated "I keep asking to tm6 see another doctor." Charge nurse notified. 12:17 Reassessment: Spoke to patient about POC. Pt crying and states "everyone has been rude aa5 and you didn't offer me a pad and asked me if I needed to use the restroom to clean myself", asked pt if there is anything else I can do for her to improve her visit, pt declined, also explained to patient that she has been discharged home and will be escorted by security if she declines to leave, pt agrees to leave at this time. . Vital Signs: 10:16 BP 145 / 99; Pulse 103; Resp 19 S; Temp 99.2(O); Pulse Ox 93% on R/A; Weight 124.74 kg kc6 (R); Height 5 ft. 6 in. (R); Pain 3/10; 12:16 BP 134 / 89; Pulse 101; Resp 20; Temp 99.2; Pulse Ox 94% on R/A; MAP 103 mmHg; tm6 10:16 Body Mass Index 44.39 (124.74 kg, 167.64 cm) kc6 10:16 Pain Scale: Adult kc ED Course: 10:03 Patient arrived in ED. mr 10:08 Yoon Cade MD is Attending Physician. sd2 10:15 Patient has correct armband on for positive identification. Bed in low position. Call tm6 light in reach. Provided Education on:. Client placed on continuous cardiac and pulse oximetry monitoring. NIBP monitoring applied. Pulse ox on. NIBP on. 10:17 Triage completed. kc6 10:17 Arm band placed on. kc6 11:29 Antonietta King, RN is Primary Nurse. tm6 12:16 No provider procedures requiring assistance completed. Patient did not have IV access tm6 during this emergency room visit. Administered Medications: 12:04 Drug: Dexamethasone PO 10 mg PO once Route: PO; tm6 12:16 Follow up: Response: Medication administered at discharge. tm6 Medication: 10:15 VIS not applicable for this client. tm6 Outcome: 10:38 Discharge ordered by . sd2 12:17 Discharged to home ambulatory, tm6 12:17 Condition: stable 12:17 Discharge instructions given to patient, Instructed on discharge instructions, follow up and referral plans. medication usage, Demonstrated understanding of instructions, follow-up care, medications, Prescriptions given X 2, 12:17 Patient left the ED. tm6 Signatures: Tierney Christy, Reg Reg mr GilsonAngela, RN RN aa5 Yoon Cade MD MD sd2 Kinjal Linares, RN RN kc6 Antonietta King RN RN tm6
[2024-02-22] MEDS ORDERED: dexAMETHasone 4 MG TAB ONE (12:01)
[2024-02-22 21:49] VITALS: BP 134/89; TEMP 99.2; O2SAT 94
== END 2024-02-22 12:17 | disposition home or self-care (01) ==
LOC: ER 10:01
DX: H66.001 Acute suppurative otitis media without spontaneous rupture of ear drum, right ear (principal); R09.81 Nasal congestion; J02.9 Acute pharyngitis, unspecified
CPT/HCPCS: 99284; J8540